=== PATIENT | female | born 1945 | race Caucasian/White ===

== ENCOUNTER 2016-12-24 18:04 | Inpatient (IN) | payer OTHER ==
[~2016-12-24] VITALS: Ht 182.9 cm; Wt 46.7 kg
[~2016-12-24 18:04] MED LIST: ALBU0.0912 IH; PRED10TA6 PO
--- NOTE | 2016-12-24 18:04 | NUR ---
Patient BIBA ACLS, transferred to bed 3. Dr. Nash, RT and RN evaluating patient at bedside.
--- NOTE | 2016-12-24 18:05 | NUR ---
PATIENT PRESENTS TO ED WITH ALBUTEROL INHALER USED SEVERAL TIMES AT HOME , NO RELIEF.POSITIVE SMOKER.COUGH CLEAR IN COLOR PER PATIENT.LUNG SOUND WHEEZ THROUGHTOUT.HX: COPD/ASTHMA. BS FIELD 96 . AAOX4;O2 VIA NC;HOB ELEVATED;NEEDS ATTENDED;SAFETY MEASURES DONE;POSITIONED FOR COMFORT.
[2016-12-24 18:13] VITALS: BP 162/83
[2016-12-24] MEDS ORDERED: ASPIRIN 81 MG TAB.CHEW PO ONE (18:15)
[2016-12-24] MEDS ORDERED: NITROGLYCERIN 2% 1 GM PKT TP ONE (18:15)
[2016-12-24] MEDS ORDERED: ALBUTEROL 0.083% 2.5 MG/3 ML NEBU INH ONE (18:20)
[2016-12-24] MEDS ORDERED: IPRATROPIUM 0.02% 0.5 MG/2.5 ML NEBU INH ONE (18:20)
[2016-12-24] MEDS ORDERED: methylPREDNISolone SS 125 MG/2 ML VIAL IVP ONE (18:20)
[2016-12-24] MEDS ORDERED: FLUT1AER4 IH (18:26)
[2016-12-24] MEDS ORDERED: BUDE180P IH (18:26)
[2016-12-24 18:43] LABS: MONOCYTES # (AUTO) 0.5 K/uL (0.8-1.0); MONOCYTES % (AUTO) 3.1 % (1.7-9.3)
[2016-12-24 18:47] LABS: BASOPHILS # (AUTO) 0.4 K/uL (0.00-0.22); BASOPHILS % (AUTO) 2.4 % (0.0-2.0); EOSINOPHILS # (AUTO) 0.2 K/uL (0-0.4); HEMATOCRIT 40.4 % (36-48); HEMOGLOBIN 13.6 g/dL (12.0-16.0); LYMPHOCYTES # (AUTO) 0.5 K/uL (2.5-16.5); LYMPHOCYTES % (AUTO) 3.1 % (20.5-51.1); MEAN CORPUSCULAR HEMOGLOBIN 33 pg (27-31); MEAN CORPUSCULAR HGB CONC 34 g/dL (33-37); MEAN CORPUSCULAR VOLUME 97 fL (80-94); NEUTROPHILS % (AUTO) 90.4 % (42.2-75.2); PLATELET COUNT (AUTO) 294 K/uL (140-450); RED BLOOD CELL COUNT(AUTO) 4.16 MIL/uL (4.20-5.40); RED CELL DISTRIBUTION WIDTH 13.4 % (11.6-13.7); WHITE BLOOD COUNT (AUTO) 16.6 K/uL (4.8-10.8)
[2016-12-24 18:54] LABS: BLOOD GAS BASE EXCESS -1.6 mmol/L (-2.0-2.0); BLOOD GAS HCO3 20.7 mmol/L; BLOOD GAS PCO2 28.6 mmHg (20-50); BLOOD GAS PH 7.478 (7.35-7.45); BLOOD GAS PO2 68.4 mmHg
[2016-12-24 18:57] LABS: ANION GAP 14.1 (8-16); CALCIUM 9.3 mg/dL (8.5-10.1); CARBON DIOXIDE 25.7 mmol/L (21-32); CHLORIDE 96 mmol/L (98-107); CREATININE 0.8 mg/dL (0.6-1.3); GLUCOSE 96 mg/dL (74-106); POTASSIUM 3.8 mmol/L (3.5-5.1); SODIUM SERUM 132 mmol/L (136-145); UREA NITROGEN, BLOOD 8 mg/dL (7-18)
[2016-12-24 19:02] LABS: ALANINE AMINOTRANSFERASE 27 U/L (12-78); ALBUMIN 4.1 g/dL (3.4-5.0); ALKALINE PHOSPHATASE 63 U/L (46-116); ASPARTATE AMINOTRANSFERASE 21 U/L (15-37); TOTAL BILIRUBIN 0.6 mg/dL (0.0-1.0)
[2016-12-24 19:08] LABS: PARTIAL THROMBOPLASTIN TIME 26.4 secs (22-35.6); PROTHROMBIN TIME 9.5 secs (10.8-13.4)
[2016-12-24 19:14] LABS: MAGNESIUM 1.6 mg/dL (1.8-2.4)
--- NOTE | 2016-12-24 19:45 | NUR ---
SPOKE TO DR MANDUJANO, PT ATTEMPTED TO URINATE BUT COULD NOT AT THE MOMENT, BUT STATED SHE HAS NO PROBLEM URINATING AT HOME. DR MANDUJANO STATED NO NEED FOR CATHETER AT THE MOMENT.
--- NOTE | 2016-12-24 19:46 | NUR ---
Pt report given to PEGGY BAEZ. Transfer of care at this time.
[2016-12-24] MEDS ORDERED: LEVOFLOXACIN 500 MG/D5W PREMIX 100 ML IV ONE (19:50)
[2016-12-24] MEDS ORDERED: ONDANSETRON 4 MG/2 ML VIAL IVP PRN (20:00)
[2016-12-24] MEDS ORDERED: MORPHINE SULFATE 2 MG/ML SYR IVP PRN (20:00)
[2016-12-24] MEDS ORDERED: NITROGLYCERIN 0.4 MG TAB SL PRN (20:00)
[2016-12-24] MEDS ORDERED: ZOLPIDEM 5 MG TAB PO PRN (20:00)
[2016-12-24] MEDS ORDERED: HYDROcodone/APAP 5/325 MG 1 TAB TAB PO PRN (20:00)
[2016-12-24] MEDS ORDERED: BUDESONIDE IH PRN (20:00)
[2016-12-24] MEDS ORDERED: MAG SULF 2000 MG/WATER PREMIX 50 ML IV ONE (20:00)
[2016-12-24] MEDS ORDERED: LORazepam 1 MG TAB PO PRN (20:00)
[2016-12-24] MEDS ORDERED: ACETAMINOPHEN 325 MG TAB PO PRN (20:00)
[2016-12-24] MEDS ORDERED: ALUMINUM HYD/MAG/SIMETHICONE 30 ML UDC PO PRN (20:00)
--- NOTE | 2016-12-24 20:12 | NUR ---
Patient will be admitted to care of DR REYES. Admited to TELE 109B. Will go to room 109B. Belongings list completed. Report to JONATHON WOODS.
[2016-12-24 20:32] VITALS: BP 150/83
--- NOTE | 2016-12-24 20:40 | NUR ---
ADMITTED A PATIENT FROM ER, TRANSPORTED VIA GURNEY, ACCOMPANIED BY ER NURSE. PT IS AAOX4, DENIES PAIN AT THIS TIME. ON NASAL CANNULA AT 3LPM, HAS NO S/S OF RESPIRATORY DISTRESS/DISCOMFORT NOTED. SKIN CHECKING DONE WITH THE CHARGE NURSE, NO SKIN ISSUES. IV SITE IS PATENT AND INTACT. REFUSED TO USE HOSPITAL GOWN AND YELLOW SOCKS, STATED " I WANT TO WEAR MY PAJAMA", PROVIDED HEALTH TEACHING, ORIENTATION TO ROOM, PLAN OF CARE DISCUSSED, VERBALIZED UNDERSTANDING. SAFETY MEASURES INITIATED, CALL LIGHT WITHIN REACH. WILL CONTINUE TO MONITOR.
[2016-12-24] MEDS ORDERED: methylPREDNISolone SS 40 MG/ML VIAL IVP SCH (21:00)
[2016-12-24] MEDS ORDERED: SALMETEROL IH SCH (21:00)
[2016-12-24] MEDS ORDERED: FLUTICASONE IH SCH (21:00)
[2016-12-24] MEDS: DEXT 5% /NACL 0.9% 1,000 ML IV SCH (21:06)
--- NOTE | 2016-12-24 22:32 | NUR ---
PT CURRENTLY RESTING, NOT IN DISTRESS. NO S/S OF RESPIRATORY DISTRESS/DISCOMFORT NOTED. CALL LIGHT WITHIN REACH.
[2016-12-25] VITALS: BP 145/79
--- NOTE | 2016-12-25 | NUR ---
V/S CHECKED, NOT IN DISTRESS. DENIES PAIN. HAS NO S/S OF RESPIRATORY DISTRESS/DISCOMFORT NOTED.
--- NOTE | 2016-12-25 02:15 | NUR ---
TRANSITIONAL CARE LIAISON AT BEDSIDE FOR BLOOD DRAW.
[2016-12-25 03:23] LABS: CREATINE KINASE MB 0.6 ng/mL (0-3.6)
[2016-12-25 04:00] VITALS: BP 145/78
--- NOTE | 2016-12-25 04:00 | NUR ---
EYES CLOSED, BREATHING EVEN AND UNLABORED. AROUSABLE BY NAME. V/S CHECKED AND STABLE. DENIES PAIN. IV FLUID INFUSING WELL. CALL LIGHT WITHIN REACH.
[2016-12-25 05:57] LABS: BILIRUBIN,URINE NEGATIVE (NEGATIVE); BLOOD, URINE TRACE-L (NEGATIVE); COLOR,URINE YELLOW (YELLOW); LEUKOCYTE ESTERASE ,URINE 1+ (NEGATIVE); NITRITE, URINE POSITIVE (NEGATIVE); PROTEIN,URINE NEGATIVE (NEGATIVE); UGLUCOSE TRACE (NEGATIVE); UROBILINOGEN,URINE 0.2 EU/dL (0.2 - 1)
--- NOTE | 2016-12-25 05:58 | NUR ---
PT AMBULATED TO REST ROOM. SECURED SAFETY. NO DISTRESS NOTED.
[2016-12-25] MEDS: DEXT 5% /NACL 0.9% 1,000 ML IV SCH ×2 (06:00→09:59)
[2016-12-25 06:56] LABS: HEMATOCRIT 36.7 % (36-48); HEMOGLOBIN 12.1 g/dL (12.0-16.0); MEAN CORPUSCULAR HEMOGLOBIN 32 pg (27-31); MEAN CORPUSCULAR HGB CONC 33 g/dL (33-37); MEAN CORPUSCULAR VOLUME 99 fL (80-94); PLATELET COUNT (AUTO) 282 K/uL (140-450); RED BLOOD CELL COUNT(AUTO) 3.71 MIL/uL (4.20-5.40); RED CELL DISTRIBUTION WIDTH 13.2 % (11.6-13.7); WHITE BLOOD COUNT (AUTO) 18.4 K/uL (4.8-10.8)
[2016-12-25] MEDS ORDERED: ALBUTEROL 0.083% 2.5 MG/3 ML NEBU INH PRN (07:08)
[2016-12-25 07:18] LABS: ANION GAP 11.3 (8-16); CALCIUM 8.6 mg/dL (8.5-10.1); CARBON DIOXIDE 25.8 mmol/L (21-32); CHLORIDE 101 mmol/L (98-107); CREATININE 0.8 mg/dL (0.6-1.3); GLUCOSE 182 mg/dL (74-106); POTASSIUM 4.1 mmol/L (3.5-5.1); SODIUM SERUM 134 mmol/L (136-145); UREA NITROGEN, BLOOD 9 mg/dL (7-18)
--- NOTE | 2016-12-25 07:24 | NUR ---
REPORT GIVEN TO DAY SHIFT NURSE FOR CONTINUITY OF CARE. PT IN STABLE CONDITION.
[2016-12-25 07:25] LABS: MAGNESIUM 2.3 mg/dL (1.8-2.4); PHOSPHORUS 3.6 mg/dL (2.5-4.9)
--- NOTE | 2016-12-25 07:26 | NUR ---
RECEIVED REPORT FROM NIGHT RN. PT RESTING IN BED. AAOX4. NO S/S OF ACUTE DISTRESS. PT DENIES PAIN. IV SITE PATENT AND INTACT. ON O2 3L NC. PT EDUCATION PROVIDED ON SCD'S. PT REFUSED. CALL LIGHT WITHIN REACH. SAFETY MEASURES ENSURED. WILL CONTINUE TO MONITOR.
[2016-12-25] MEDS: BUDESONIDE 0.5 MG/2 ML NEBU INH SCH ×2 (07:30→19:30)
[2016-12-25 08:00] VITALS: BP 128/68
[2016-12-25 08:33] LABS: BAND % (MANUAL) 5 % (0-8); LYMPHOCYTES % (MANUAL) 5 % (20-46); MONOCYTES % (MANUAL) 17 % (5-12); NEUTROPHILS % (MANUAL) 73 (43-65)
[2016-12-25 08:38] LABS: APPEARANCE,URINE HAZY (CLEAR)
[2016-12-25 08:41] LABS: BACTERIA,URINE 1+ /HPF (None Seen); RBC,URINE NONE SEEN /HPF (0-5)
--- NOTE | 2016-12-25 09:12 | NUR ---
PATIENT HAS BEEN SCREENED AND CATEGORIZED HIGH NUTRITION RISK. PATIENT WILL BE SEEN WITHIN 1-2 DAYS OF ADMISSION. 12/25/16-12/26/[address]
[2016-12-25] MEDS: methylPREDNISolone SS 40 MG/ML VIAL IVP SCH ×2 (09:31→20:48)
[2016-12-25] MEDS: DOCUSATE SODIUM 100 MG GELCAP PO SCH (09:31)
--- NOTE | 2016-12-25 09:31 | NUR ---
PT TOLERATED AM MEDS WELL. PT DENIES PAIN. NO S/S OF ACUTE DISTRESS. PT DENIES PAIN. CALL LIGHT WITHIN REACH. SAFETY MEASURES ENSURED. WILL CONTINUE TO MONITOR.
[2016-12-25 11:40] LABS: CREATINE KINASE MB 0.6 ng/mL (0-3.6)
[2016-12-25 11:56] VITALS: BP 144/74
--- NOTE | 2016-12-25 11:56 | NUR ---
PT SLEEPING IN BED. NO S/S OF ACUTE DISTRESS. CALL LIGHT WITHIN REACH. SAFETY MEASURES ENSURED. WILL CONTINUE TO MONITOR.
--- NOTE | 2016-12-25 12:03 | NUR ---
12/25/16 RD INITIAL ASSESSMENT COMPLETED PLEASE REFER TO NUTRITION ASSESSMENT UNDER CARE ACTIVITY FOR ESTIMATED NUTRITIONAL NEEDS. RD RECOMMENDATIONS: 1. CONTINUE ON CARDIAC DIET TOLERATED. 2. ENCOURAGE INCREASED PO INTAKES. --RD WILL ADD HEALTH SHAKE TID FOR ADDITIONAL 900 KCAL AND 27 GM OF PROTEIN PER DAY. 3. PT DOES NOT APPEAR TO BE 72 IN TALL, CONSIDER REEVALUATING PT HEIGHT. 4. RD WILL F/U 3-5 DAYS; MODERATE RISK. ANGIE COOMBS, RD
[2016-12-25] MEDS: ALBUTEROL 0.083% 2.5 MG/3 ML NEBU INH SCH ×2 (13:08→19:30)
--- NOTE | 2016-12-25 14:22 | NUR ---
PT RESTING IN BED. NO S/S OF ACUTE DISTRESS. PT DENIES PAIN. CALL LIGHT WITHIN REACH. SAFETY MEASURES ENSURED. WILL CONTINUE TO MONITOR.
[2016-12-25 16:00] VITALS: BP 153/73
--- NOTE | 2016-12-25 17:22 | NUR ---
PT RESTING IN BED. NO S/S OF ACUTE DISTRESS. PT DENIES PAIN. CALL LIGHT WITHIN REACH. SAFETY MEASURES ENSURED. WILL CONTINUE TO MONITOR.
--- NOTE | 2016-12-25 19:13 | NUR ---
ENDORSED PLAN OF CARE TO NIGHT RN. PT REMAINS IN STABLE CONDITION..
--- NOTE | 2016-12-25 19:30 | NUR ---
RECEIVED REPORT FROM DAY RN AT BEDSIDE, PATIENT IS AAOX4 CURRENTLY ON ROOM AIR, NO SOB OR SIGN OF DISTRESS AT THIS TIME. PATIENT SKIN INTACT, IV PATENT AND INTACT, DENIES PAIN. DISCUSSED PLAN OF CARE WITH PATIENT, PATIENT VERBALIZED UNDERSTANDING, CALL LIGHT WITHIN REACH. WILL CONTINUE TO MONITOR.
[2016-12-25 20:00] VITALS: BP 160/83
[2016-12-25] MEDS: LEVOFLOXACIN 250 MG/D5 PREMIX 50 ML IV SCH (20:47)
--- NOTE | 2016-12-25 21:04 | NUR ---
PM MEDS ADMINISTERED, PATIENT TOLERATED WELL, WILL CONTINUE TO MONITOR
--- NOTE | 2016-12-25 22:30 | NUR ---
PATIENT SLEEPING, NO SOB OR SIGN OF DISTRESS AT THIS TIME, CALL LIGHT WITHIN REACH WILL CONTINUE TO MONITOR.
[2016-12-26] VITALS: BP 149/71
--- NOTE | 2016-12-26 | NUR ---
VITAL SIGNS STABLE, NO SOB OR SIGN OF DISTRESS AT THIS TIME, CALL LIGHT WITHIN REACH. WILL CONTINUE TO MONITOR.
[2016-12-26] MEDS: ALBUTEROL 0.083% 2.5 MG/3 ML NEBU INH SCH ×4 (01:23→19:00)
--- NOTE | 2016-12-26 02:15 | NUR ---
PATIENT SLEEPING, NO SOB OR SIGN OF DISTRESS AT THIS TIME, CALL LIGHT WITHIN REACH. WILL CONTINUE TO MONITOR.
[2016-12-26] MEDS: DEXT 5% /NACL 0.9% 1,000 ML IV SCH ×3 (02:20→20:22)
[2016-12-26 04:00] VITALS: BP 143/69
--- NOTE | 2016-12-26 04:30 | NUR ---
VITAL SIGNS STABLE, NO SOB OR SIGN OF DISTRESS AT THIS TIME, CALL LIGHT WITHIN REACH. WILL CONTINUE TO MONITOR
[2016-12-26 05:38] LABS: HEMATOCRIT 31.6 % (36-48); HEMOGLOBIN 10.3 g/dL (12.0-16.0); MEAN CORPUSCULAR HEMOGLOBIN 32 pg (27-31); MEAN CORPUSCULAR HGB CONC 33 g/dL (33-37); MEAN CORPUSCULAR VOLUME 99 fL (80-94); PLATELET COUNT (AUTO) 235 K/uL (140-450); RED BLOOD CELL COUNT(AUTO) 3.19 MIL/uL (4.20-5.40); RED CELL DISTRIBUTION WIDTH 13.5 % (11.6-13.7); WHITE BLOOD COUNT (AUTO) 12.7 K/uL (4.8-10.8)
[2016-12-26 06:13] LABS: ANION GAP 12.2 (8-16); CALCIUM 8.1 mg/dL (8.5-10.1); CARBON DIOXIDE 24.8 mmol/L (21-32); CHLORIDE 106 mmol/L (98-107); CREATININE 0.7 mg/dL (0.6-1.3); GLUCOSE 161 mg/dL (74-106); SODIUM SERUM 139 mmol/L (136-145); UREA NITROGEN, BLOOD 9 mg/dL (7-18)
[2016-12-26] MEDS: BUDESONIDE 0.5 MG/2 ML NEBU INH SCH ×2 (06:59→20:08)
[2016-12-26 07:01] LABS: BAND % (MANUAL) 5 % (0-8); LYMPHOCYTES % (MANUAL) 4 % (20-46); MONOCYTES % (MANUAL) 4 % (5-12); NEUTROPHILS % (MANUAL) 87 (43-65); PLATELET ESTIMATE ADEQUATE
--- NOTE | 2016-12-26 07:37 | NUR ---
ENDORSED PATIENT TO DAY RN AT BEDSIDE, PATIENT IN STABLE CONDITION
--- NOTE | 2016-12-26 07:40 | NUR ---
RECEIVED REPORT FROM ELISEO RN. PT IN BATHROOM. UPON EXITING BATHROOM PT'S IV IS OUT OF ARM. TIP INTACT. PRESSURE HELD ON SITE. AAOX4. NO S/S OF ACUTE DISTRESS. PT DENIES PAIN. TELE BOX IN PLACE. CALL LIGHT WITHIN REACH. SAFETY MEASURES ENSURED. WILL CONTINUE TO MONITOR.
[2016-12-26 07:43] VITALS: BP 142/64
[2016-12-26] MEDS: DOCUSATE SODIUM 100 MG GELCAP PO SCH (08:49)
[2016-12-26] MEDS: methylPREDNISolone SS 40 MG/ML VIAL IVP SCH ×2 (08:49→20:21)
--- NOTE | 2016-12-26 08:49 | NUR ---
PT TOLERATED AM MEDS WELL. IV STARTED ON RIGHT WRIST 22G. NO S/S OF ACUTE DISTRESS. PT DENIES PAIN. CALL LIGHT WITHIN REACH. WILL CONTINUE TO MONITOR.
--- NOTE | 2016-12-26 11:27 | NUR ---
PT RESTING IN BED. NO S/S OF ACUTE DISTRESS. PT DENIES PAIN. CALL LIGHT WITHIN REACH. SAFETY MEASURES ENSURED. WILL CONTINUE TO MONITOR.
[2016-12-26 12:00] VITALS: BP 152/71
--- NOTE | 2016-12-26 14:55 | NUR ---
PT RESTING IN BED. NO S/S OF ACUTE DISTRESS. PT DENIES PAIN. CALL LIGHT WITHIN REACH. SAFETY MEASURES ENSURED. WILL CONTINUE TO MONITOR.
[2016-12-26] MEDS ORDERED: MAG SULF 2000 MG/WATER PREMIX 50 ML IV SCH (15:40)
[2016-12-26 16:00] VITALS: BP 147/63
[2016-12-26 16:26] LABS: FREE T4 (FREE THYROXINE) 1.09 ng/dL (0.76-1.46); THYROID STIMULATING HORMONE 1.29 uIU/mL (0.34-3.76)
--- NOTE | 2016-12-26 16:41 | NUR ---
PT RESTING IN BED. NO S/S OF ACUTE DISTRESS. PT DENIES PAIN. CALL LIGHT WITHIN REACH. SAFETY MEASURES ENSURED. WILL CONTINUE TO MONITOR
--- NOTE | 2016-12-26 19:18 | NUR ---
ENDORSED PLAN OF CARE TO NIGHT RN. PT REMAINS IN STABLE CONDITION.
--- NOTE | 2016-12-26 19:30 | NUR ---
RECEIVED REPORT FROM DAY RN AT BEDSIDE, PATIENT IS AAO X4 RESTING IN BED, ON ROOM AIR AT THIS TIME, NO SOB OR SIGN OF DISTRESS AT THIS TIME. IV IS PATENT AND INTACT WITH IVF INFUSING WELL. SKIN INTACT, DISCUSSED PLAN OF CARE WITH PATIENT, PATIENT VERBALIZED UNDERSTANDING, CALL LIGHT WITHIN REACH. WILL CONTINUE TO MONITOR.
[2016-12-26 20:00] VITALS: BP 161/88
[2016-12-26] MEDS: LEVOFLOXACIN 250 MG/D5 PREMIX 50 ML IV SCH (20:21)
--- NOTE | 2016-12-26 20:30 | NUR ---
PM MEDS ADMINISTERED, PATIENT TOLERATED WELL, CALL LIGHT WITHIN REACH. WILL CONTINUE TO MONITOR.
--- NOTE | 2016-12-26 22:30 | NUR ---
PATIENT SLEEPING, NO SOB OR SIGN OF DISTRESS AT THIS TIME, CALL LIGHT WITHIN REACH. WILL CONTINUE TO MONITOR.
[2016-12-27] VITALS: BP 160/71
--- NOTE | 2016-12-27 00:05 | NUR ---
VITAL SIGNS STABLE, NO SOB OR SIGN OF DISTRESS, CALL LIGHT WITHIN REACH. WILL CONTINUE TO MONITOR.
[2016-12-27] MEDS: ALBUTEROL 0.083% 2.5 MG/3 ML NEBU INH SCH ×4 (01:38→19:25)
--- NOTE | 2016-12-27 02:30 | NUR ---
PATIENT SLEEPING, NO SOB OR SIGN OF DISTRESS, CALL LIGHT WITHIN REACH. WILL CONTINUE TO MONITOR.
[2016-12-27 04:00] VITALS: BP 154/76
--- NOTE | 2016-12-27 04:00 | NUR ---
VITAL SIGNS STABLE, NO SOB OR SIGN OF DISTRESS, CALL LIGHT WITHIN REACH. WILL CONTINUE TO MONITOR.
[2016-12-27 06:39] LABS: BASOPHILS # (AUTO) 0.1 K/uL (0.00-0.22); BASOPHILS % (AUTO) 0.7 % (0.0-2.0); EOSINOPHILS # (AUTO) 0.1 K/uL (0-0.4); EOSINOPHILS % (AUTO) 1.5 % (0.0-4.0); HEMATOCRIT 31.3 % (36-48); HEMOGLOBIN 10.2 g/dL (12.0-16.0); LYMPHOCYTES # (AUTO) 0.7 K/uL (2.5-16.5); LYMPHOCYTES % (AUTO) 7.2 % (20.5-51.1); MEAN CORPUSCULAR HEMOGLOBIN 32 pg (27-31); MEAN CORPUSCULAR HGB CONC 33 g/dL (33-37); MEAN CORPUSCULAR VOLUME 100 fL (80-94); MONOCYTES # (AUTO) 0.7 K/uL (0.8-1.0); MONOCYTES % (AUTO) 7.4 % (1.7-9.3); NEUTROPHILS # (AUTO) 8.3 K/uL (1.8-7.7); NEUTROPHILS % (AUTO) 83.2 % (42.2-75.2); PLATELET COUNT (AUTO) 251 K/uL (140-450); RED BLOOD CELL COUNT(AUTO) 3.13 MIL/uL (4.20-5.40); RED CELL DISTRIBUTION WIDTH 13.4 % (11.6-13.7)
[2016-12-27] MEDS: BUDESONIDE 0.5 MG/2 ML NEBU INH SCH ×2 (06:49→19:25)
--- NOTE | 2016-12-27 07:30 | NUR ---
ENDORSED PATIENT TO DAY RN AT BEDSIDE, PATIENT IN STABLE CONDITION.
--- NOTE | 2016-12-27 07:32 | NUR ---
RECEIVED REPORT FROM NIGHT RN. PT RESTING IN BED. AAOX4. NO S/S OF ACUTE DISTRESS. PT DENIES PAIN. IV SITE PATENT AND INTACT. TELE BOX IN PLACE. CALL LIGHT WITHIN REACH. SAFETY MEASURES ENSURED. WILL CONTINUE TO MONITOR.
[2016-12-27 07:59] LABS: ANION GAP 11.9 (8-16); CALCIUM 8.3 mg/dL (8.5-10.1); CARBON DIOXIDE 24.7 mmol/L (21-32); CHLORIDE 108 mmol/L (98-107); CREATININE 0.6 mg/dL (0.6-1.3); GLUCOSE 129 mg/dL (74-106); POTASSIUM 3.6 mmol/L (3.5-5.1); SODIUM SERUM 141 mmol/L (136-145); UREA NITROGEN, BLOOD 10 mg/dL (7-18)
[2016-12-27 08:00] VITALS: BP 163/80
[2016-12-27] MEDS: DEXT 5% /NACL 0.9% 1,000 ML IV SCH ×3 (08:00→21:42)
[2016-12-27 08:48] LABS: WHITE BLOOD COUNT (AUTO) 9.9 K/uL (4.8-10.8)
[2016-12-27] MEDS: NICOTINE TRANSD SYS 21 MG/24 HR PATCH TD SCH (09:00)
[2016-12-27] MEDS: DOCUSATE SODIUM 100 MG GELCAP PO SCH (09:16)
[2016-12-27] MEDS: methylPREDNISolone SS 40 MG/ML VIAL IVP SCH ×2 (09:17→20:39)
[2016-12-27] MEDS: MAGNESIUM OXIDE 400 MG TAB PO SCH (09:17)
[2016-12-27] MEDS: DILTIAZEM 90 MG CAPER PO SCH (09:17)
--- NOTE | 2016-12-27 10:05 | NUR ---
AM MEDS GIVEN WITH EDUCATION, PT TOLERATED WELL. PT REFUSED NICOTINE PATCH. NO S/S OF ACUTE DISTRESS. PT DENIES PAIN. CALL LIGHT WITHIN REACH. SAFETY MEASURES ENSURED. WILL CONTINUE TO MONITOR.
--- NOTE | 2016-12-27 11:38 | NUR ---
PT RESTING IN BED. NO S/S OF ACUTE DISTRESS. PT DENIES PAIN. CALL LIGHT WITHIN REACH. SAFETY MEASURES ENSURED. WILL CONTINUE TO MONITOR.
[2016-12-27 12:00] VITALS: BP 161/78
[2016-12-27] MEDS ORDERED: MAG SULF 2000 MG/WATER PREMIX 50 ML IV SCH (13:00)
--- NOTE | 2016-12-27 14:15 | NUR ---
PT RESTING IN BED. NO S/S OF ACUTE DISTRESS. PT DENIES PAIN. CALL LIGHT WITHIN REACH. SAFETY MEASURES ENSURED. WILL CONTINUE TO MONITOR.
[2016-12-27 16:00] VITALS: BP 165/75
--- NOTE | 2016-12-27 17:08 | NUR ---
PT RESTING IN BED. NO S/S OF ACUTE DISTRESS. PT DENIES PAIN. CALL LIGHT WITHIN REACH. SAFETY MEASURES ENSURED. WILL CONTINUE TO MONITOR.
--- NOTE | 2016-12-27 19:31 | NUR ---
ENDORSED PLAN OF CARE. PT REMAINS IN STABLE CONDITION.
--- NOTE | 2016-12-27 19:32 | NUR ---
RECEIVED PT IN STABLE CONDITION FROPM AM NURSE. AWAKE,ALERT AND ORIENTED X4. MED SURG PT. WITH NO C/O OF ANY DISCOMFORT NOR PAIN NOTED. GETTING BREATHING TREATMENT AT THIS TIME. HAS IVF INFUSING WELL ON THE RT WRIST #22. CLEAR AND PATENT. PLAN OF CARE DISCUSSED AND VERBALIZED UNDERSTANDING. CALL LIGHT PLACED WITHIN EASY REACH. WILL CONTINUE TO MONITOR.
[2016-12-27] MEDS: LEVOFLOXACIN 250 MG/D5 PREMIX 50 ML IV SCH (20:38)
--- NOTE | 2016-12-27 22:00 | NUR ---
ASLEEP. NO S/S OF ANY DISTRESS NOTED. WILL CONTINUE TO MONITOR.
[2016-12-28 00:30] VITALS: BP 161/78
--- NOTE | 2016-12-28 01:00 | NUR ---
ASLEEP. NO RESPIRATORY DISTRESS NOTED.
[2016-12-28] MEDS: ALBUTEROL 0.083% 2.5 MG/3 ML NEBU INH SCH ×3 (02:06→13:50)
[2016-12-28] MEDS: DEXT 5% /NACL 0.9% 1,000 ML IV SCH ×2 (04:00→15:04)
--- NOTE | 2016-12-28 04:00 | NUR ---
PT IN STABLE CONDITION. NO C/O OF ANY SOB NOTED.
[2016-12-28 06:13] LABS: BASOPHILS % (AUTO) 0.5 % (0.0-2.0); EOSINOPHILS # (AUTO) 0.1 K/uL (0-0.4); EOSINOPHILS % (AUTO) 1.1 % (0.0-4.0); HEMOGLOBIN 10.8 g/dL (12.0-16.0); LYMPHOCYTES # (AUTO) 0.4 K/uL (2.5-16.5); LYMPHOCYTES % (AUTO) 5.4 % (20.5-51.1); MEAN CORPUSCULAR HEMOGLOBIN 33 pg (27-31); MEAN CORPUSCULAR HGB CONC 33 g/dL (33-37); MEAN CORPUSCULAR VOLUME 100 fL (80-94); MONOCYTES # (AUTO) 0.2 K/uL (0.8-1.0); MONOCYTES % (AUTO) 2.8 % (1.7-9.3); NEUTROPHILS # (AUTO) 6.8 K/uL (1.8-7.7); NEUTROPHILS % (AUTO) 90.2 % (42.2-75.2); PLATELET COUNT (AUTO) 272 K/uL (140-450); RED BLOOD CELL COUNT(AUTO) 3.31 MIL/uL (4.20-5.40); RED CELL DISTRIBUTION WIDTH 13.4 % (11.6-13.7); WHITE BLOOD COUNT (AUTO) 7.4 K/uL (4.8-10.8)
[2016-12-28 06:23] LABS: ANION GAP 6.9 (8-16); CALCIUM 8.5 mg/dL (8.5-10.1); CARBON DIOXIDE 29.8 mmol/L (21-32); CHLORIDE 104 mmol/L (98-107); CREATININE 0.7 mg/dL (0.6-1.3); GLUCOSE 182 mg/dL (74-106); POTASSIUM 3.7 mmol/L (3.5-5.1); SODIUM SERUM 137 mmol/L (136-145); UREA NITROGEN, BLOOD 8 mg/dL (7-18)
--- NOTE | 2016-12-28 06:30 | NUR ---
PT RESTING IN BED. NO C/O OF ANY DISTRESS NOTED THIS AM.
[2016-12-28 06:41] LABS: MAGNESIUM 1.8 mg/dL (1.8-2.4); PHOSPHORUS 2.7 mg/dL (2.5-4.9)
[2016-12-28] MEDS: BUDESONIDE 0.5 MG/2 ML NEBU INH SCH (07:15)
--- NOTE | 2016-12-28 07:20 | NUR ---
ENDORSED PT IN STABLE CONDITION TO AM NURSE.
--- NOTE | 2016-12-28 07:21 | NUR ---
PT AWAKE AND ALERT AND ORIENTED X4, NO SIGNS OF ACUTE DISTRESS, BREATHING EVEN AND UNLABORED BILATERALLY, BOWEL SOUNDS ACTIVE IN ALL 4 QUADRANTS NO ABDOMINAL DISTENTION, AMBULATORY WITH BRP, BOWEL AND BLADDER CONTINENCE, SKIN INTACT, IV LINE PATENT WITH NO SIGNS OF REDNESS, BED IN LOW POSITION WITH BILATERAL HALF SIDE RAILS UP, CALL LIGHT WITHIN REACH.
[2016-12-28 08:00] VITALS: BP 161/91
[2016-12-28] MEDS: NICOTINE TRANSD SYS 21 MG/24 HR PATCH TD SCH (09:00)
[2016-12-28] MEDS: methylPREDNISolone SS 40 MG/ML VIAL IVP SCH (09:09)
[2016-12-28] MEDS: DILTIAZEM 90 MG CAPER PO SCH (09:11)
[2016-12-28] MEDS: MAGNESIUM OXIDE 400 MG TAB PO SCH (09:11)
[2016-12-28] MEDS: DOCUSATE SODIUM 100 MG GELCAP PO SCH (09:11)
[2016-12-28 15:56] VITALS: BP 149/81
--- NOTE | 2016-12-28 18:52 | NUR ---
PT AWAKE AND ALERT, NO SIGNS OF ACUTE DISTRESS, BREATHING EVEN AND UNLABORED BILATERALLY, WILL ENDORSE TO MANAGER BAR NURSE FOR CONTINUITY OF CARE.
[2016-12-28] MEDS ORDERED: LEVO750T2 PO (18:57)
[2016-12-28] MEDS ORDERED: CARER90 PO (18:57)
[2016-12-28] MEDS ORDERED: MAG400 PO (18:57)
[2016-12-28] MEDS ORDERED: BUDE180P IH (18:57)
[2016-12-28] MEDS ORDERED: [UNRECOGNIZED DRUG - CODE] TD (18:57)
[2016-12-28] MEDS ORDERED: FLUT1AER4 IH (18:57)
[2016-12-28] MEDS ORDERED: ALBU0.0912 IH (18:57)
[2016-12-28] MEDS ORDERED: NITR0.4T1 SL (18:57)
--- NOTE | 2016-12-28 19:05 | NUR ---
PT AWAKE AND ALERT, NO SIGNS OF ACUTE DISTRESS. ENDORSED TO UNDERGROUND UTILITY LOCATOR NURSE FOR CONTINUITY OF CARE.
--- NOTE | 2016-12-28 19:30 | NUR ---
RECEIVED REPORT FROM DAY RN AT BEDSIDE, PATIENT ON ROOM AIR, AAOX4 GATHERING BELONGINGS PATIENT IS TO BE DISCHARGED, PAPERWORK IS TO BE SIGNED, PATIENT IV STILL INTACT, PTS RIDE TO ONCOLOGY PHYSICIAN ASSISTANT SOON PER PATIENT, SKIN INTACT, SAFETY MEASURES CHECKED. CALL LIGHT WITHIN REACH. WILL CONTINUE TO MONITOR.
--- NOTE | 2016-12-28 19:35 | NUR ---
PATIENT WAS GIVEN DISCHARGE INSTRUCTIONS PATIENT VERBALIZES UNDERSTANDING AND PRESCRIPTIONS WERE GIVEN AND PATIENT PATIENT INFORMED TO MAKE A FOLLOW UP APPT PATIENT VERBALIZES UNDERSTANDING. AND PATIENT HAS ALL HER BELONGINGS WITH HER.IV LINE WAS DISCONTINUED AND ID BANDS REMOVED AND DISCARDED APPROPRIATELY. PATIENT READY FOR PROFESSIONAL ADVISOR ESCALERA INFORMED.PATIENT IS WAITING FOR HER RIDE.
--- NOTE | 2016-12-28 20:40 | NUR ---
PATIENT RIDE HERE TO INSTALLATION SPECIALIST PATIENT, PATIENT STABLE CONDITION, PAPERWORK SIGNED, IV REMOVED, WRISTBANDS REMOVED, PATIENT'S BELONGINGS IN PTS POSSESSION, PATIENT WHEELED OUT TO FRONT LOBBY BY LARD TUB WASHER, PATIENT LEFT IN PRIVATE VEHICLE IN STABLE CONDITION.
== END 2016-12-28 20:32 | disposition home or self-care (01) | DRG 871 ==
LOC: MED 18:04 → MTU 20:07
PROVIDERS: ADMIT Preventive Medicine Preventive Medicine/Occupational Environmental Medicine; ATTEND Preventive Medicine Preventive Medicine/Occupational Environmental Medicine
DX: A41.9 Sepsis, unspecified organism (principal); G93.41 Metabolic encephalopathy; J18.9 Pneumonia, unspecified organism; J96.21 Acute and chronic respiratory failure with hypoxia; J44.1 Chronic obstructive pulmonary disease with (acute) exacerbation; E87.0 Hyperosmolality and hypernatremia; J44.0 Chronic obstructive pulmonary disease with (acute) lower respiratory infection; I25.10 Atherosclerotic heart disease of native coronary artery without angina pectoris; F17.200 Nicotine dependence, unspecified, uncomplicated; F10.10 Alcohol abuse, uncomplicated; D64.9 Anemia, unspecified; E83.42 Hypomagnesemia; E83.52 Hypercalcemia; F17.210 Nicotine dependence, cigarettes, uncomplicated; I48.0 Paroxysmal atrial fibrillation; R73.9 Hyperglycemia, unspecified; Z71.6 Tobacco abuse counseling; Z79.899 Other long term (current) drug therapy
CPT/HCPCS: 36415; 36600; 71010; 80048; 80053; 81001; 82550; 82553; 82803; 83605; 83735; 83874; 83880; 84100; 84439; 84443; 84484; 85025; 85610; 85651; 85730; 86140; 87040; 87081; 87086; 93005; 94640; 96365; 96375; 99285; J1644; J1956; J2920; J2930; J3475; J7030; J7042; J7613; J7626; J7644; Q0092

== ENCOUNTER 2018-01-06 12:24 | Inpatient (IN) | payer OTHER ==
[~2018-01-06] VITALS: Ht 177.8 cm; Wt 45.8 kg
[~2018-01-06 12:24] MED LIST changes: +BUDE180P IH; +CARER90 PO; +FLUT1AER4 IH; +LEVO750T2 PO; +MAG400 PO; +NICO-532 TD; +NITR0.4T1 SL; -PRED10TA6 PO
[2018-01-06 12:25] VITALS: BP 171/113
--- NOTE | 2018-01-06 12:30 | NUR ---
ERMD MADE AWARE OF PATIENT SOB/COUGH AND DIMINISHED BS WHILE IN TRIAGE. NO BED AT THAT TIME.
--- NOTE | 2018-01-06 12:40 | NUR ---
ASSESSED BY ERMD IN TRIAGE.WILL ORDER RESP.TX
[2018-01-06] MEDS ORDERED: IPRATROPIUM 0.02% 0.5 MG/2.5 ML NEBU INH ONE (12:45)
[2018-01-06] MEDS ORDERED: methylPREDNISolone SS 125 MG/2 ML VIAL IVP ONE (12:45)
[2018-01-06] MEDS ORDERED: ALBUTEROL 0.083% 2.5 MG/3 ML NEBU INH ONE (12:45)
--- NOTE | 2018-01-06 12:45 | NUR ---
PT TAKEN TO BED 3 IN WHEELCHAIR
--- NOTE | 2018-01-06 12:45 | NUR ---
PATIENT PRESENTS TO ED WITH COMPLAINTS OF SHORTNESS OF BREATH DUE TO REACTION OF CONTRAST USED 3 DAYS AGO REPORTED PER PATIENTS SON. DENIES N/V/D; SKIN IS PINK/WARM/DRY; AAOX4; SOME WHEEZING PRESENT IN LUNG SOUNDS; CAP REFIL <3 SEC HR EVEN AND REGULAR; PT DENIES ANY FEVER; PATIENT STATES PAIN OF 5/10 AT THIS TIME; VSS; PATIENT POSITIONED FOR COMFORT; HOB ELEVATED; BEDRAILS UP X1; BED DOWN. ER MD MADE AWARE OF PT STATUS.
--- NOTE | 2018-01-06 12:48 | NUR ---
ADMITTING DX: SOB HX: COPD/ASTHMA LOC AWAKE AND ALERT REPONSIVE TO STRICKLER ATTENDANT VERBAL COMMANDS HFW POSITION EDUCATION PROVIDE TO PATIENT WITH ACKNOWLEDGEMENT ON HHN THERAPY AND RESPIRATORY DRUGS HHN THERAPY GIVEN ORDERED ENCOURAGED PATIENT FOR INTERMITTENT DEEP BREATHING DURING THERAPY TOLERATED WELL WITHOUT INCIDENT
--- NOTE | 2018-01-06 12:58 | NUR ---
RT AT BEDSIDE
--- NOTE | 2018-01-06 13:09 | NUR ---
XRAY AT BEDSIDE
[2018-01-06 14:01] LABS: BASOPHILS % (AUTO) 0.7 % (0.0-2.0); EOSINOPHILS # (AUTO) 0.4 K/uL (0-0.4); EOSINOPHILS % (AUTO) 5.8 % (0.0-4.0); HEMATOCRIT 40.9 % (36-48); HEMOGLOBIN 13.5 g/dL (12.0-16.0); LYMPHOCYTES # (AUTO) 1.4 K/uL (2.5-16.5); LYMPHOCYTES % (AUTO) 23.3 % (20.5-51.1); MEAN CORPUSCULAR HEMOGLOBIN 33 pg (27-31); MEAN CORPUSCULAR HGB CONC 33 g/dL (33-37); MEAN CORPUSCULAR VOLUME 99.6 fL (80-94); MONOCYTES # (AUTO) 0.7 K/uL (0.8-1.0); NEUTROPHILS # (AUTO) 3.7 K/uL (1.8-7.7); NEUTROPHILS % (AUTO) 59.2 % (42.2-75.2); PLATELET COUNT (AUTO) 294 K/uL (140-450); RED CELL DISTRIBUTION WIDTH 13.2 % (11.6-13.7); WHITE BLOOD COUNT (AUTO) 6.2 K/uL (4.8-10.8)
[2018-01-06 14:16] LABS: ANION GAP 11.2 (8-16); CARBON DIOXIDE 28.7 mmol/L (21-32); CHLORIDE 99 mmol/L (98-107); CREATININE 0.9 mg/dL (0.6-1.3); GLUCOSE 93 mg/dL (74-106); POTASSIUM 4.9 mmol/L (3.5-5.1); SODIUM SERUM 134 mmol/L (136-145); UREA NITROGEN, BLOOD 10 mg/dL (7-18)
[2018-01-06 14:19] LABS: PROTHROMBIN TIME 10.4 secs (10.8-13.4)
[2018-01-06 14:23] LABS: ALBUMIN 4.3 g/dL (3.4-5.0); ASPARTATE AMINOTRANSFERASE 19 U/L (15-37); TOTAL BILIRUBIN 0.5 mg/dL (0.0-1.0)
[2018-01-06] MEDS ORDERED: cloNIDine 0.1 MG TAB PO ONE (14:35)
[2018-01-06] MEDS: NACL 0.9% 1,000 ML IV SCH (14:57)
[2018-01-06] MEDS ORDERED: ACETAMINOPHEN 325 MG TAB PO PRN (15:00)
[2018-01-06] MEDS ORDERED: HYDROcodone/APAP 7.5/325 MG 1 TAB PO PRN (15:00)
[2018-01-06] MEDS ORDERED: MORPHINE SULFATE 2 MG/ML SYR IVP PRN (15:00)
[2018-01-06] MEDS ORDERED: DOCUSATE SODIUM 100 MG GELCAP PO PRN (15:00)
[2018-01-06] MEDS ORDERED: ALBUTEROL SULFATE/IPRATROPIU 3 ML SOL IH PRN (15:05)
[2018-01-06] MEDS ORDERED: ALBUTEROL HFA MDI 90 MCG/ACTUATION 8 GM INH PRN (15:05)
[2018-01-06 15:38] VITALS: BP 157/84
--- NOTE | 2018-01-06 15:38 | NUR ---
Patient will be admitted to care of DR. PATTERSON. Admited to TELE. Will go to [id number]. Belongings list completed. Report to BRENDEN.
--- NOTE | 2018-01-06 15:38 | NUR ---
RECEIVED BEDSIDE REPORT FROM PROJ ENGINEER NURSE. PATIENT IS AWAKE, ALERT AND ORIENTEDX4. NO SIGNS OF DISTRESS, PLACED PATIENT ON 2L NC, 02SAT 89% RA, UP TO 92% ON 2L NC. LUNGS ARE CLEAR. IV ON LAC 20G SALINE LOCK. IV IS CLEAN, DRY AND INTACT. VITALS ARE STABLE. TELE MONITOR IN PLACE. ALL PAPERWORK AND ADMISSION PAPERWORK IS DONE. EDUCATED THE PATIENT ON THE IMPORTANCE TO STOP SMOKING. PATIENT VERBALIZED UNDERSTANDING. SKIN HAS BUE BRUISES. L BREAST LUMPS ARE PRESENT. MRSA SWAB IS DONE. BED IN LOW POSITION. CALL LIGHT WITHIN REACH. WILL CONTINUE TO MONITOR THE PATIENT. PATIENT HAS MED IN PHARMACY
[2018-01-06 15:54] LABS: FREE T4 (FREE THYROXINE) 1.18 ng/dL (0.76-1.46); MAGNESIUM 1.9 mg/dL (1.8-2.4); PHOSPHORUS 4.5 mg/dL (2.5-4.9); THYROID STIMULATING HORMONE 2.26 uIU/mL (0.34-3.74)
--- NOTE | 2018-01-06 17:00 | NUR ---
FAMILY IS AT BEDSIDE. NO COMPLAINTS AT THIS TIME. WILL CONTINUE TO MONITOR THE PATIENT.
[2018-01-06] MEDS ORDERED: NICOTINE TRANSD SYS 21 MG/24 HR PATCH TD PRN (17:15)
[2018-01-06] MEDS ORDERED: hydrALAZINE 20 MG/ML VIAL IVP PRN (18:15)
--- NOTE | 2018-01-06 18:28 | NUR ---
PATIENT IS SITTING IN BED. NO SIGNS OF DISTRESS ON 2L NC. CALLED [facility] TO ORDER HER A TRAY FOR DINNER. WILL CONTINUE TO MONITOR THE PATIENT.
--- NOTE | 2018-01-06 19:15 | NUR ---
RECEIVED PATIENT REPORT AT BEDSIDE. PATIENT AWAKE, ALERT AND ORIENTED. NO S/S OF DISTRESS NOTED. PATIENT ON 2L O2. PATIENT DENIES ANY SOB AT THE MOMENT. BREATHING EVEN AND UNLABORED. PATIENT DENIES PAIN AT THIS TIME. PATIENT ON TELE MONITORING. BED LOWERED WITH CALL LIGHT WITHIN REACH. WILL CONTINUE TO MONITOR
--- NOTE | 2018-01-06 19:15 | NUR ---
GAVE BEDSIDE REPORT TO APPLICATIONS TESTER NURSE. PATIENT IS IN STABLE CONDITION.
[2018-01-06] MEDS ORDERED: BUDESONIDE 0.5 MG/2 ML NEBU INH SCH (19:30)
[2018-01-06] MEDS: ADVAIR INH SCH (19:30)
[2018-01-06 20:00] VITALS: BP 142/78
--- NOTE | 2018-01-06 20:22 | NUR ---
TRIED PT'S ABG WITH NO SUCCESS. PT DOES NOT WANT TO TRY AGAIN TODAY BECAUSE SHE IS IN PAIN AND WANTS TO SLEEP. PT WANTS TO TRY AGAIN IN MORNING. WILL ENDORSE TO MORNING SHIFT.
--- NOTE | 2018-01-06 22:25 | NUR ---
PATIENT ASLEEP IN BED. NO S/S OF DISTRESS
[2018-01-07] VITALS: BP 151/76
--- NOTE | 2018-01-07 02:07 | NUR ---
PATIENT ASLEEP IN BED. NO S/S OF DISTRESS NOTED
[2018-01-07] MEDS: methylPREDNISolone SS 125 MG/2 ML VIAL IVP SCH ×3 (04:59→21:16)
[2018-01-07 05:05] VITALS: BP 153/80
--- NOTE | 2018-01-07 05:07 | NUR ---
PATIENT AMBULATED TO THE BATHROOM TO VOID. NO S/S OF DISTRESS
[2018-01-07 06:17] LABS: T4 (THYROXINE) 7.7 ug/dL (4.5-12.0)
[2018-01-07 06:23] LABS: BASOPHILS % (AUTO) 0.2 % (0.0-2.0); EOSINOPHILS % (AUTO) 0.4 % (0.0-4.0); HEMATOCRIT 39.1 % (36-48); HEMOGLOBIN 13.1 g/dL (12.0-16.0); LYMPHOCYTES # (AUTO) 1.3 K/uL (2.5-16.5); LYMPHOCYTES % (AUTO) 21.1 % (20.5-51.1); MEAN CORPUSCULAR HEMOGLOBIN 33 pg (27-31); MEAN CORPUSCULAR HGB CONC 34 g/dL (33-37); MEAN CORPUSCULAR VOLUME 99.1 fL (80-94); MONOCYTES # (AUTO) 0.6 K/uL (0.8-1.0); MONOCYTES % (AUTO) 9.5 % (1.7-9.3); NEUTROPHILS # (AUTO) 4.3 K/uL (1.8-7.7); NEUTROPHILS % (AUTO) 68.8 % (42.2-75.2); PLATELET COUNT (AUTO) 293 K/uL (140-450); RED BLOOD CELL COUNT(AUTO) 3.94 MIL/uL (4.20-5.40); RED CELL DISTRIBUTION WIDTH 12.9 % (11.6-13.7); WHITE BLOOD COUNT (AUTO) 6.3 K/uL (4.8-10.8)
[2018-01-07 06:46] LABS: CARBON DIOXIDE 23.4 mmol/L (21-32); CHLORIDE 101 mmol/L (98-107); GLUCOSE 84 mg/dL (74-106); POTASSIUM 4.4 mmol/L (3.5-5.1); SODIUM SERUM 134 mmol/L (136-145); UREA NITROGEN, BLOOD 25 mg/dL (7-18)
--- NOTE | 2018-01-07 07:24 | NUR ---
PATIENT REPORT GIVEN AT BEDSIDE. PATIENT ENDORSED IN STABLE CONDITION
--- NOTE | 2018-01-07 07:24 | NUR ---
RECEIVED REPORT FROM NIGHTSHIFT NURSE AT BEDSIDE. PATIENT IS ALERT AND ORIENTED X4. PATIENT PRESENTS IN SEMI-FOWLERS POSITION. NO RESPIRATORY DISTRESS NOTED. NO RESPIRATORY DEPRESSION NOTED. NO COMPLAINTS OF PAIN AT THIS TIME. PATIENT ON 2L O2 VIA NC WITH O2 SATURATION AT 95%. PATIENT SKIN IN TACT. IV NOTED ON LEFT AC 20G AT 60 ML/HR. PUT CALL LIGHT WITHIN REACH OF PATIENT. UPDATED PATIENT'S BOARD. WILL CONTINUE TO MONITOR PATIENT.
[2018-01-07] MEDS: NACL 0.9% 1,000 ML IV SCH (07:37)
[2018-01-07 08:00] VITALS: BP 155/79
[2018-01-07] MEDS: ADVAIR INH SCH ×2 (08:58→18:55)
[2018-01-07] MEDS: HYDROCHLOROTHIAZIDE 25 MG TAB PO SCH (08:59)
--- NOTE | 2018-01-07 08:59 | NUR ---
PATIENT TOOK ORETIC MEDICATION FOR BLOOD PRESSURE. WILL CONTINUE TO MONITOR PATIENT.
--- NOTE | 2018-01-07 09:17 | NUR ---
PATIENT HAS BEEN SCREENED AND CATEGORIZED HIGH NUTRITION RISK. PATIENT WILL BE SEEN WITHIN 1-2 DAYS OF ADMISSION. 01/07/18 01/08/[address]
--- NOTE | 2018-01-07 11:13 | NUR ---
PATIENT'S FAMILY AT BEDSIDE AT THIS TIME. PATIENT IN STABLE CONDITION. WILL CONTINUE TO MONITOR PATIENT.
[2018-01-07 12:00] VITALS: BP 136/61
--- NOTE | 2018-01-07 13:16 | NUR ---
01/07/18 RD INITIAL ASSESSMENT COMPLETED PLEASE REFER TO NUTRITION ASSESSMENT UNDER CARE ACTIVITY FOR ESTIMATED NUTRITIONAL NEEDS. 1. CONTINUE REGULAR DIET TOLERATED 2. CONSIDER DIET EDUCATION FOR INCREASING PO INTAKE AT HOME. 3. RECOMMEND BOOST PLUS TID WITH MEALS. 4. RECOMMEND MULTIVITAMIN ONCE A DAY. 5. RD TO FOLLOW-UP 2-3 DAYS, HIGH RISK SOLO CROWDER RD
--- NOTE | 2018-01-07 13:45 | NUR ---
PATIENT RESTING IN BED. NO DISTRESS NOTED. NO PAIN NOTED. WILL CONTINUE TO MONITOR PATIENT.
--- NOTE | 2018-01-07 15:02 | NUR ---
clinical /chart reviewed per MSG criteria.
--- NOTE | 2018-01-07 15:22 | NUR ---
PATIENT RESTING IN BED. NO DISTRESS NOTED.
[2018-01-07 16:00] VITALS: BP 155/77
--- NOTE | 2018-01-07 17:22 | NUR ---
PATIENT RESTING IN BED. NO DISTRESS NOTED. WILL CONTINUE TO MONITOR PATIENT.
[2018-01-07] MEDS: ALBUTEROL SULFATE/IPRATROPIU 3 ML SOL IH SCH ×2 (19:28→23:11)
[2018-01-07] MEDS ORDERED: BUDESONIDE 0.5 MG/2 ML NEBU INH SCH (19:30)
--- NOTE | 2018-01-07 19:30 | NUR ---
PT IN BED WITH HOB UP 45 AOX 4 PT HAS 2 L N/C .NO S/S OF DISTRESS IV SITE FLUSHED PT AND RUNNING NACL AT 6OMLS /HR . PT BREATHING EVEN RESPIRATIONS LUNGS ARE CLEAR BUT BASES OF LUNG SOUNDS DIMINISHED. BED LOW SIDE RAILS UP X 2 AND CALL MONTEMAYOR IN REACH.
--- NOTE | 2018-01-07 19:30 | NUR ---
GAVE REPORT TO NIGHTSHIFT NURSE. PATIENT IN STABLE CONDITION.
[2018-01-07 20:00] VITALS: BP 114/63
--- NOTE | 2018-01-07 23:00 | NUR ---
LAB CALLED URINE NEEDED TO BE COLLECTED FOR URINALYSIS, PT AMBULATED TO BATHROOM AFTER HER NEB TXTMENTS. SHE VOIDED AND URINE WAS COLLECTED. URINE LOOKED YELLOW AND SLIGHTLY CLOUDY. SENT TO LAB.
[2018-01-08] VITALS: BP 154/68
[2018-01-08] MEDS: NACL 0.9% 1,000 ML IV SCH (00:17)
[2018-01-08 00:28] LABS: APPEARANCE,URINE CLEAR (CLEAR); BILIRUBIN,URINE NEGATIVE (NEGATIVE); BLOOD, URINE NEGATIVE (NEGATIVE); COLOR,URINE YELLOW (YELLOW); LEUKOCYTE ESTERASE ,URINE TRACE (NEGATIVE); NITRITE, URINE POSITIVE (NEGATIVE); UGLUCOSE NEGATIVE (NEGATIVE)
[2018-01-08 00:40] LABS: BARBITURATE, URINE NEG. ng/ml (NEG <=200); BENZODIAZEPINE, URINE NEG. ng/mL (NEG <=200); CANNABINOID, URINE NEG. ng/mL (NEG <=50); COCAINE, URINE NEG. ng/mL (NEG <=300); OPIATE, URINE NEG. ng/mL (NEG <=2000); PHENCYCLIDINE SCREEN,URINE NEG. ng/mL (NEG <=25)
[2018-01-08 00:49] LABS: RBC,URINE 0-5 (RARE) /HPF (0-5); WBC,URINE 0-5 (RARE) /HPF (0-5)
[2018-01-08] MEDS: ALBUTEROL SULFATE/IPRATROPIU 3 ML SOL IH SCH ×3 (03:22→11:04)
--- NOTE | 2018-01-08 03:40 | NUR ---
RESIDENT DR. SARABIA MADE AWARE OF LAB RESULTS OF URINALYSIS. PT HAS + [address] SARABIA WILL PROVIDE ORDERS FOR THIS PT.
[2018-01-08 04:00] VITALS: BP 162/74
[2018-01-08] MEDS ORDERED: LEVOFLOXACIN 500 MG/D5W PREMIX 100 ML IV SCH (05:00)
--- NOTE | 2018-01-08 05:00 | NUR ---
NEW ORDER NOTED FOR LEVAQUIN IVP PT IN BED NO C/O VOICED CALL LIGHT IN REACH.
[2018-01-08] MEDS: methylPREDNISolone SS 40 MG/ML VIAL IVP SCH ×2 (05:27→12:08)
[2018-01-08 06:35] LABS: HEMATOCRIT 35.1 % (36-48); HEMOGLOBIN 11.7 g/dL (12.0-16.0); MEAN CORPUSCULAR HEMOGLOBIN 33 pg (27-31); MEAN CORPUSCULAR HGB CONC 33 g/dL (33-37); MEAN CORPUSCULAR VOLUME 99.5 fL (80-94); PLATELET COUNT (AUTO) 244 K/uL (140-450); RED BLOOD CELL COUNT(AUTO) 3.53 MIL/uL (4.20-5.40); RED CELL DISTRIBUTION WIDTH 13.1 % (11.6-13.7); WHITE BLOOD COUNT (AUTO) 9.1 K/uL (4.8-10.8)
[2018-01-08 06:54] LABS: ANION GAP 13.7 (8-16); CARBON DIOXIDE 24.7 mmol/L (21-32); CHLORIDE 104 mmol/L (98-107); CREATININE 0.9 mg/dL (0.6-1.3); GLUCOSE 153 mg/dL (74-106); POTASSIUM 4.4 mmol/L (3.5-5.1); SODIUM SERUM 138 mmol/L (136-145); UREA NITROGEN, BLOOD 20 mg/dL (7-18)
[2018-01-08 07:04] LABS: MAGNESIUM 1.8 mg/dL (1.8-2.4)
[2018-01-08 07:28] LABS: LYMPHOCYTES % (MANUAL) 3 % (20-46); MONOCYTES % (MANUAL) 2 % (5-12)
--- NOTE | 2018-01-08 07:30 | NUR ---
RECEIVED REPORT FROM SHAMPOOER NURSE AT BEDSIDE. PT IS AAOX4. ON 2 L O2 VIA NC. NO RESPIRATORY DISTRESS NOTED. DENIES PAIN. SKIN INTACT. IV NOTED ON LEFT AC 20G AT 60 ML/HR. CALL LIGHT WITHIN REACH OF PATIENT. UPDATED BOARD. WILL CONTINUE TO MONITOR PATIENT.
--- NOTE | 2018-01-08 07:44 | NUR ---
PT IS NOW ON ROOM AIR PER MD ORDER, WILL RECHECK O2 SAT AFTER 30MIN.
[2018-01-08 08:00] VITALS: BP 163/75
[2018-01-08] MEDS: ADVAIR INH SCH (08:12)
[2018-01-08] MEDS: HYDROCHLOROTHIAZIDE 25 MG TAB PO SCH (08:12)
--- NOTE | 2018-01-08 08:16 | NUR ---
PT O2 SAT 96% ON ROOM AIR. NO S/S ACUTE DISTRESS.
[2018-01-08] MEDS ORDERED: LACTOBACILLUS RHAMNOSUS GG 1 EACH CAP PO SCH (09:00)
[2018-01-08] MEDS ORDERED: MULTIVITAMIN/MINERALS 1 TAB PO SCH (09:00)
--- NOTE | 2018-01-08 09:30 | NUR ---
WILBUR REPORTED TO DR LIMON
[2018-01-08] MEDS ORDERED: LEVO500T2 PO (10:19)
[2018-01-08] MEDS ORDERED: LACT10CA PO (10:19)
[2018-01-08] MEDS ORDERED: ALBU0.0912 IH (10:19)
[2018-01-08] MEDS ORDERED: ORE25 PO (10:19)
[2018-01-08] MEDS ORDERED: FLUT1AER4 IH (10:19)
[2018-01-08] MEDS ORDERED: METH4TAB3 PO (10:54)
[2018-01-08] MEDS ORDERED: PNEUMOCOCCAL VACCINE 23 MCG/0.5 ML VIAL IMVAC SCH (11:20)
[2018-01-08] MEDS ORDERED: INFLUENZA VIRUS VACCINE QUAD 0.5 ML SYR IMVAC SCH (11:20)
--- NOTE | 2018-01-08 11:47 | NUR ---
MADE PT AWARE OF THE IMPORTANCE OF PNA VAC FOR COPD PT. PT AGREES TO RECEIVE PNA VAC.
[2018-01-08 12:00] VITALS: BP 153/67
--- NOTE | 2018-01-08 12:45 | NUR ---
PNA VAC GIVEN. PT DISCHARGED PER MD ORDER. DISCHARGE INSTRUCTION GIVEN, MEDICATION TEACHING PROVIDED. PT VERBALIZED UNDERSTANDING. MADE PT AWARE OF SCHEDULED APPOINTMENT AND REFERRAL FOR PFT. ENCOURAGED PT TO FIRE DISPATCHER RX TODAY AND START THE MEDS MAUREEN. PT AGREED. PT DENIES PAIN, NAUSEA, VOMITING. IV CATH REMOVED, TIP INTACT, PRESSURE APPLIED. PT LEFT IN STABLE CONDITION AND WAS WHEELED TO LOBBY BY SINTER FEEDER. PT'S BROTHER IS WITH THE HER.
[2018-01-09] MEDS ORDERED: LEVOFLOXACIN 250 MG/D5 PREMIX 50 ML IV SCH (05:00)
[2018-01-09] MEDS ORDERED: HYDROCHLOROTHIAZIDE 25 MG TAB PO SCH (09:00)
== END 2018-01-08 12:45 | disposition home or self-care (01) | DRG 291 ==
LOC: MED 12:24 → MTU 15:02
PROVIDERS: ADMIT Student in an Organized Health Care Education/Training Program; ATTEND Student in an Organized Health Care Education/Training Program
DX: I11.0 Hypertensive heart disease with heart failure (principal); J96.21 Acute and chronic respiratory failure with hypoxia; E87.1 Hypo-osmolality and hyponatremia; J44.1 Chronic obstructive pulmonary disease with (acute) exacerbation; J44.0 Chronic obstructive pulmonary disease with (acute) lower respiratory infection; I50.43 Acute on chronic combined systolic (congestive) and diastolic (congestive) heart failure; I48.91 Unspecified atrial fibrillation; E11.9 Type 2 diabetes mellitus without complications; I16.0 Hypertensive urgency; N63.20 Unspecified lump in the left breast, unspecified quadrant; E78.5 Hyperlipidemia, unspecified; F17.210 Nicotine dependence, cigarettes, uncomplicated; J98.4 Other disorders of lung; Z85.3 Personal history of malignant neoplasm of breast; Z91.041 Radiographic dye allergy status; Z91.19 Patient's noncompliance with other medical treatment and regimen; Z79.899 Other long term (current) drug therapy; Z71.6 Tobacco abuse counseling
CPT/HCPCS: 36415; 36600; 71045; 76641; 80048; 80053; 80305; 81001; 82150; 82550; 82803; 83036; 83690; 83735; 83880; 84100; 84436; 84439; 84443; 84479; 84484; 85025; 85379; 85610; 85730; 86886; 86900; 86901; 87081; 87086; 87186; 90732; 93005; 94640; 96374; 99285; J0360; J1644; J1956; J2920; J2930; J7030; J7613; J7620; J7626; J7644; Q0092

== ENCOUNTER 2018-06-27 12:05 | Inpatient (IN) | payer OTHER ==
[~2018-06-27] VITALS: Ht 180.3 cm; Wt 44.9 kg
[~2018-06-27 12:05] MED LIST changes: -BUDE180P IH; -CARER90 PO; +LACT10CA PO; +LEVO500T2 PO; -LEVO750T2 PO; -MAG400 PO; +METH4TAB3 PO; -NICO-532 TD; -NITR0.4T1 SL; +ORE25 PO
[2018-06-27 12:16] VITALS: BP 155/96
--- NOTE | 2018-06-27 12:20 | NUR ---
bib son with c/o sob x last night accessory muscle use noted---2-3 word sentences hx--copd, rx---albuterol, spiriva currently on tamiflu
[2018-06-27] MEDS ORDERED: ALBUTEROL SULFATE/IPRATROPIU 3 ML SOL IH ONE (12:25)
[2018-06-27] MEDS ORDERED: methylPREDNISolone SS 125 MG/2 ML VIAL IVP ONE (13:15)
[2018-06-27] MEDS ORDERED: FAMOTIDINE 20 MG/2 ML VIAL IVP ONE (13:15)
[2018-06-27] MEDS ORDERED: IPRATROPIUM 0.02% 0.5 MG/2.5 ML NEBU INH ONE (13:15)
[2018-06-27] MEDS ORDERED: diphenhydrAMINE 50 MG/ML VIAL IVP ONE (13:15)
[2018-06-27] MEDS ORDERED: MAGNESIUM SULFATE 50% 1,000 MG in NACL 0.9% 50 ML IV ONE (13:15)
[2018-06-27] MEDS ORDERED: ALBUTEROL 0.083% 2.5 MG/3 ML NEBU INH ONE (13:15)
--- NOTE | 2018-06-27 13:45 | NUR ---
RT AT BEDSIDE.
[2018-06-27] MEDS ORDERED: MAGNESIUM SULFATE 1GM in DEXTROSE 5% 100 ML PREMIX IV SCH (14:00)
[2018-06-27 14:12] LABS: BASOPHILS % (AUTO) 0.5 % (0.0-2.0); EOSINOPHILS # (AUTO) 0.8 K/uL (0-0.4); EOSINOPHILS % (AUTO) 9.7 % (0.0-4.0); HEMATOCRIT 39.4 % (36-48); HEMOGLOBIN 13.2 g/dL (12.0-16.0); LYMPHOCYTES # (AUTO) 1.8 K/uL (2.5-16.5); MEAN CORPUSCULAR HEMOGLOBIN 32 pg (27-31); MEAN CORPUSCULAR HGB CONC 34 g/dL (33-37); MEAN CORPUSCULAR VOLUME 96.5 fL (80-94); MONOCYTES # (AUTO) 0.8 K/uL (0.8-1.0); MONOCYTES % (AUTO) 9.9 % (1.7-9.3); NEUTROPHILS # (AUTO) 4.8 K/uL (1.8-7.7); NEUTROPHILS % (AUTO) 57.9 % (42.2-75.2); PLATELET COUNT (AUTO) 309 K/uL (140-450); RED BLOOD CELL COUNT(AUTO) 4.09 MIL/uL (4.20-5.40); RED CELL DISTRIBUTION WIDTH 13.2 % (11.6-13.7); WHITE BLOOD COUNT (AUTO) 8.2 K/uL (4.8-10.8)
--- NOTE | 2018-06-27 14:30 | NUR ---
Per pt "feeling better" after m/n tx with son at bedside
[2018-06-27] MEDS ORDERED: SPIMDI INH (14:40)
[2018-06-27 14:41] LABS: ANION GAP 10.9 (8-16); CARBON DIOXIDE 30.2 mmol/L (21-32); CHLORIDE 98 mmol/L (98-107); CREATININE 0.8 mg/dL (0.6-1.3); GLUCOSE 91 mg/dL (74-106); POTASSIUM 4.1 mmol/L (3.5-5.1); SODIUM SERUM 135 mmol/L (136-145); UREA NITROGEN, BLOOD 10 mg/dL (7-18)
[2018-06-27 14:44] LABS: PROTHROMBIN TIME 9.9 secs (10.8-13.4)
[2018-06-27 15:42] LABS: ALBUMIN 4.2 g/dL (3.4-5.0); ASPARTATE AMINOTRANSFERASE 19 U/L (15-37); TOTAL BILIRUBIN 0.4 mg/dL (0.0-1.0)
[2018-06-27] MEDS ORDERED: LEVOFLOXACIN 500 MG/D5W PREMIX 100 ML IV ONE (15:45)
[2018-06-27] MEDS ORDERED: HYDROcodone/APAP 7.5/325 MG 1 TAB PO PRN (16:50)
[2018-06-27] MEDS ORDERED: ONDANSETRON 4 MG/2 ML VIAL IVP PRN (16:50)
[2018-06-27] MEDS ORDERED: ACETAMINOPHEN 325 MG TAB PO PRN (16:50)
[2018-06-27] MEDS ORDERED: ALBUTEROL SULFATE/IPRATROPIU 3 ML SOL IH PRN (16:55)
[2018-06-27 17:48] LABS: CHOL/HDL RATIO 2.4 (1-4.5); PHOSPHORUS 4.4 mg/dL (2.5-4.9); THYROID STIMULATING HORMONE 2.04 uIU/mL (0.34-3.74)
[2018-06-27 18:13] LABS: FREE T4 (FREE THYROXINE) 1.17 ng/dL (0.76-1.46)
--- NOTE | 2018-06-27 18:21 | NUR ---
awaiting for admitting orders, aao pt notified
[2018-06-27] MEDS ORDERED: guaiFENesin 20 MG/ML UDC PO PRN ×2 (18:35)
--- NOTE | 2018-06-27 18:35 | NUR ---
Patient will be admitted to care of Dr Johnson. Admited to tele. Will go to room 112a. Belongings list completed. Report to PEGGY Davies.
--- NOTE | 2018-06-27 18:40 | NUR ---
PT ARRIVED FROM ER IN [facility], PT PLACED ON SHIPYARD HELPER, REPORT RECEIVED FROM CALLUM RN, PT AWAKE ALERT, ABLE TO AMBULATE FROM HALLWAY TO BED WITHOUT ASSIST, RESP EVEN UNLABORED ON 2L NC O2, SPEAKS CLEARLY WITHOUT SOB, SKIN WARM DRY COLOR WNL, MOVES ALL EXT, VITALS TAKEN, DENIES PAIN OR DISCOMFORT AT THIS TIME, PT ORIENTED TO ROOM AND FLOOR, CALL MONTEMAYOR WITHIN REACH, SIDE RAILS UP, BED LOCKED IN LOW POSITION, PT REQUESTS DINNER, FNS CALLED FOR LATE DINNER TRAY.
--- NOTE | 2018-06-27 19:19 | NUR ---
REPORT GIVEN TO CENTRIFUGAL STATION OPERATOR NURSE TORIBIO CHAMBERS IN STABLE CONDITION.
--- NOTE | 2018-06-27 19:20 | NUR ---
RECEIVED REPORT FORM DONTRELL RN DAYSHIFT NURSE AT BEDSIDE FOR CONTINUITY OF CARE, PT INSTABLE CONDITION, FAMILY AT BEDSIDE.
[2018-06-27] MEDS: ALBUTEROL SULFATE/IPRATROPIU 3 ML SOL IH SCH (19:42)
[2018-06-27 19:45] VITALS: BP 139/76
--- NOTE | 2018-06-27 19:45 | NUR ---
RESPIRATORY AT BEDSIDE PROVIDING BREATHING TX AT THIS TIME.
[2018-06-27] MEDS ORDERED: DOCUSATE SODIUM 100 MG GELCAP PO SCH (21:00)
--- NOTE | 2018-06-27 21:00 | NUR ---
PT RELIEVED ALL MEDS DUE (SOLUMEDROL 125MG/IVP AND COZAAR /PO ). PT IN LOW BED WITH SIDE RAILS UP X2. PT REFUSES TO WEAR GOWN AND IS WEARING PJ'S INSTEAD. PT HAS NO C/O OF PAIN OR DISTRESS, PT REFUSES SUPPLEMENTAL O2 VIA N/C AT THIS TIME , HOWEVER NO SOB NOTED. PT LUNG SOUNDS DIMINISHED THROUGHOUT . B/S POSITIVE ALL 4 QUADS. PT CALL MONTEMAYOR IN REACH AND ALL REQUESTED NEEDS ATTENDED BY STAFF.
[2018-06-27] MEDS: LOSARTAN 25 MG TAB PO SCH (21:12)
[2018-06-27] MEDS: methylPREDNISolone SS 125 MG/2 ML VIAL IVP SCH (21:13)
[2018-06-28] VITALS: BP 143/77
--- NOTE | 2018-06-28 00:20 | NUR ---
PT IN LOW BED WITH SIDE RAILS UP X2 PT ASLEEP WITH NO SUPPLEMENTAL O2 IN PLACE, NO S/S OF SOB PT HAD NO C/O VOICED AT THIS TIME. PT REMINDED TO GIVE SPUTUM SAMPLE POST RESPIRATORY TREATMENT. V/S FOLLOWS T 98.1 P 77 R 18 B/P 143/77 02 94% WITH R/A.
--- NOTE | 2018-06-28 03:45 | NUR ---
PT IN BED ASLEEP NO S/S OF PAIN OR DISTRESS NOTED. V/S FOLLOWS T 98.0 P 80 R 18 B/P 172/91 02 90% WITH R/A. PT HAS NO SOB NOTED. WILL MEDICATE PT FOR SYSTOLIC B/P OF 172.
[2018-06-28 04:00] VITALS: BP 172/91
[2018-06-28] MEDS: methylPREDNISolone SS 125 MG/2 ML VIAL IVP SCH ×3 (04:52→21:13)
[2018-06-28] MEDS: cloNIDine 0.1 MG TAB PO PRN ×3 (04:55→07:00)
--- NOTE | 2018-06-28 05:00 | NUR ---
MEDICATED PRN CATAPRES FOR HIGH SYSTOLIC B/P WILL MONITOR FOR EFFECTIVENESS.
[2018-06-28] MEDS: ALBUTEROL SULFATE/IPRATROPIU 3 ML SOL IH SCH ×3 (06:25→19:02)
[2018-06-28 06:41] LABS: BASOPHILS % (AUTO) 0.1 % (0.0-2.0); HEMATOCRIT 37.4 % (36-48); HEMOGLOBIN 12.6 g/dL (12.0-16.0); LYMPHOCYTES # (AUTO) 0.4 K/uL (2.5-16.5); MEAN CORPUSCULAR HEMOGLOBIN 32 pg (27-31); MEAN CORPUSCULAR HGB CONC 34 g/dL (33-37); MEAN CORPUSCULAR VOLUME 95.4 fL (80-94); MONOCYTES % (AUTO) 0.8 % (1.7-9.3); NEUTROPHILS # (AUTO) 4.4 K/uL (1.8-7.7); NEUTROPHILS % (AUTO) 90.1 % (42.2-75.2); PLATELET COUNT (AUTO) 290 K/uL (140-450); RED BLOOD CELL COUNT(AUTO) 3.92 MIL/uL (4.20-5.40); RED CELL DISTRIBUTION WIDTH 12.8 % (11.6-13.7); WHITE BLOOD COUNT (AUTO) 4.9 K/uL (4.8-10.8)
--- NOTE | 2018-06-28 07:00 | NUR ---
DR. ROBLES PAGED FOR PT DUE TO PT HAVING A HEADACHE AND REQUESTING PRN PAIN MEDS , HOWEVER NO PAIN MEDS ORDERED ON THE OCT. AWAITING RESPONSE BACK FORM
[2018-06-28 07:01] LABS: ANION GAP 12.8 (8-16); CARBON DIOXIDE 25.6 mmol/L (21-32); CHLORIDE 99 mmol/L (98-107); CREATININE 0.9 mg/dL (0.6-1.3); GLUCOSE 144 mg/dL (74-106); POTASSIUM 4.4 mmol/L (3.5-5.1); SODIUM SERUM 133 mmol/L (136-145); UREA NITROGEN, BLOOD 15 mg/dL (7-18)
--- NOTE | 2018-06-28 07:09 | NUR ---
PAGED BACK WITH TYLENOL ORDER OF 650MG Q4HRS FOR MILD PAIN /FEVER.
--- NOTE | 2018-06-28 07:10 | NUR ---
GAVE REPORT TO AMY WOODS DAYSHIFT NURSE AT BEDSIDE FOR CONTINUITY OF CARE, PT IN STABLE CONDITION.
--- NOTE | 2018-06-28 07:15 | NUR ---
RECEIVED REPORT FROM EMPLOYMENT ATTORNEY RN. PT IN STABLE CONDITION. REPORTS MILD HEADACHE, WILL ADMIN TYLENOL WHEN AVAILABLE. PT REPORTS FEELING SOB. RR 22, 92% ON 1L NC. NO S/S RESPIRATORY DISTRESS. INTERMITTENT COUGHING. TOLD PT THAT WE NEED SPUTUM SAMPLE. PER EMPLOYMENT ATTORNEY RN, RT IS AWARE. REDNESS ON RT ABDOMEN, PER PT THIS IS DUE TO RECEIVING RADIATION PREVIOUSLY. SKIN INTACT. PT IS AMBULATORY, FALL RISK, REFUSING YELLOW GOWN AND SOCKS. IV SITE PATENT AND ASYMPTOMATIC, ON SL. UPDATED BOARD AND EXPLAINED POC. PT VERBALIZED COMPLETE UNDERSTANDING. ALL SAFETY PRECAUTIONS IN PLACE, WILL CONTINUE TO MONITOR.
[2018-06-28 08:00] VITALS: BP 135/69
[2018-06-28] MEDS: LOSARTAN 25 MG TAB PO SCH ×2 (08:47→21:12)
--- NOTE | 2018-06-28 08:47 | NUR ---
ADMINISTERED 0900 SCHEDULED MED PER MD ORDERS. PT IN STABLE CONDITION. ADMINISTERED TYLENOL FOR MILD HEADACHE. ALL SAFETY PRECAUTIONS IN PLACE, WILL CONTINUE TO MONITOR.
[2018-06-28] MEDS: ACETAMINOPHEN 325 MG TAB PO PRN ×2 (08:48→21:12)
--- NOTE | 2018-06-28 09:32 | NUR ---
PATIENT HAS BEEN SCREENED AND CATEGORIZED HIGH NUTRITION RISK. PATIENT WILL BE SEEN WITHIN 1-2 DAYS OF ADMISSION. 06/28/18-06/29/[address]
[2018-06-28 12:00] VITALS: BP 140/66
--- NOTE | 2018-06-28 12:38 | NUR ---
NOTIFIED DR. ROBLES THAT SODIUM IS 133 AND PT IS ON SL, NO IVF ORDERS.
[2018-06-28] MEDS ORDERED: LEVOFLOXACIN 250 MG TAB PO SCH (13:00)
--- NOTE | 2018-06-28 13:51 | NUR ---
06/28/18 RD INITIAL ASSESSMENT COMPLETED PLEASE REFER TO NUTRITION ASSESSMENT UNDER CARE ACTIVITY FOR ESTIMATED NUTRITIONAL NEEDS. RD RECOMMENDATIONS: 1. CONTINUE 2 GM NA DIET TOLERATED. -NOTE PT CONSUMED ~90% OF BREAKFAST THIS MORNING. 2. RD WILL F/U 3-5 DAYS; MODERATE RISK. NUSRAT OROURKE, RD
--- NOTE | 2018-06-28 15:23 | NUR ---
PT CONTINUES TO SATURATE ABOVE 90% ON RA. NO S/S RESPIRATORY DISTRESS. WILL CONTINUE TO MONITOR.
[2018-06-28 16:00] VITALS: BP 131/55
--- NOTE | 2018-06-28 17:14 | NUR ---
PT SLEEPING IN BED, AROUSABLE BY VOICE. PT CONTINUES TO SATURATE ABOVE 90% ON RA. NO S/S RESPIRATORY DISTRESS. WILL CONTINUE TO MONITOR. Addendum: 06/28/18 at 1935 by Mirela Bay Meng, RN DENIES PAIN AND DISCOMFORT.
--- NOTE | 2018-06-28 19:05 | NUR ---
ENDORSED POC TO X RAY EQUIPMENT MECHANIC RN. PT IN STABLE CONDITION.
--- NOTE | 2018-06-28 19:12 | NUR ---
PATIENT INSTRUCTED AT LENGTH ON PROPER USE AND FREQUENCY OF INCENTIVE SPIROMETER. HAD A DIFFICULT TIME PERFORMING DUE TO LACK OF UNDERSTANDING. END RESULT WAS A POOR EFFORT WITH A MAXIMUM VOLUME OF 500ML AND 6 ATTEMPTS.
--- NOTE | 2018-06-28 19:40 | NUR ---
RECEIVED REPORT FROM DAY SHIFT NURSE AMY-RN AT BEDSIDE. PT RESTING IN BED, AOX4, ON ROOM AIR WITH IV SITE ON LEFT AC #20G. SKIN INTACT HOWEVER HAS LEFT BREAST REDNESS DUE TO CANCER RADIATION. DISCUSSED PLAN OF CARE AND PT VERBALIZED UNDERSTANDING. NO S/S OF RESPIRATORY DISTRESS OR DISCOMFORT NOTED AT THIS TIME. BED IN LOWEST POSITION, BED BREAKS ON, BOTH SIDE RAILS UP, BED ALARM ON AND FALL PRECAUTIONS ARE IN PLACE HOWEVER PT REFUSES TO USE YELLOW GOWN. BEDSIDE TABLE AND CALL LIGHT ARE WITHIN REACH. WILL CONTINUE TO MONITOR.
[2018-06-28 20:00] VITALS: BP 158/56
--- NOTE | 2018-06-28 20:00 | NUR ---
VITAL SIGNS TAKEN AND TOLERATED WELL- ELEVATED B/P NOTED. NO S/S OF RESPIRATORY DISTRESS OR DISCOMFORT NOTED AT THIS TIME. WILL CONTINUE TO MONITOR.
--- NOTE | 2018-06-28 21:13 | NUR ---
SCHEDULED MEDICATION GIVEN AND TOLERATED WELL. TYLENOL GIVEN FOR HEADACHE. NO S/S OF RESPIRATORY DISTRESS OR DISCOMFORT NOTED AT THIS TIME. WILL CONTINUE TO MONITOR.
--- NOTE | 2018-06-28 23:00 | NUR ---
PT SLEEPING AT THIS TIME. NO S/S OF RESPIRATORY DISTRESS OR DISCOMFORT NOTED AT THIS TIME. WILL CONTINUE TO MONITOR.
[2018-06-29] VITALS: BP 146/58
--- NOTE | 2018-06-29 | NUR ---
VITAL SIGNS TAKEN AND TOLERATED WELL. NO S/S OF RESPIRATORY DISTRESS OR DISCOMFORT NOTED AT THIS TIME. WILL CONTINUE TO MONITOR.
--- NOTE | 2018-06-29 02:00 | NUR ---
PT CONTINUES TO SLEEP. NO S/S OF RESPIRATORY DISTRESS OR DISCOMFORT NOTED AT THIS TIME. WILL CONTINUE TO MONITOR.
[2018-06-29 04:00] VITALS: BP 148/59
--- NOTE | 2018-06-29 04:00 | NUR ---
VITAL SIGNS TAKEN AND TOLERATED WELL. NO S/S OF RESPIRATORY DISTRESS OR DISCOMFORT NOTED AT THIS TIME. WILL CONTINUE TO MONITOR.
[2018-06-29] MEDS: methylPREDNISolone SS 125 MG/2 ML VIAL IVP SCH ×3 (04:11→20:31)
--- NOTE | 2018-06-29 04:11 | NUR ---
SCHEDULED MEDICATION GIVEN AND TOLERATED WELL. NO S/S OF RESPIRATORY DISTRESS OR DISCOMFORT NOTED AT THIS TIME. WILL CONTINUE TO MONITOR.
--- NOTE | 2018-06-29 06:00 | NUR ---
PT SLEEPING IN BED. NO S/S OF RESPIRATORY DISTRESS OR DISCOMFORT NOTED AT THIS TIME. WILL CONTINUE TO MONITOR.
[2018-06-29] MEDS: ALBUTEROL SULFATE/IPRATROPIU 3 ML SOL IH SCH ×3 (06:55→19:35)
[2018-06-29 07:13] LABS: ANION GAP 10.4 (8-16); CARBON DIOXIDE 26.6 mmol/L (21-32); CHLORIDE 104 mmol/L (98-107); CREATININE 0.8 mg/dL (0.6-1.3); GLUCOSE 139 mg/dL (74-106); SODIUM SERUM 137 mmol/L (136-145); UREA NITROGEN, BLOOD 18 mg/dL (7-18)
--- NOTE | 2018-06-29 07:14 | NUR ---
ENDORSED PT CARE TO DAY SHIFT NURSE AMY-PEGGY FOR CONTINUITY OF CARE.
--- NOTE | 2018-06-29 07:17 | NUR ---
RECEIVED REPORT FROM SHOE PLANNER RN. PT IN STABLE CONDITION. DENIES PAIN AND DISCOMFORT AT THIS TIME. PT REPORTS FEELING SOB AT BASELINE. RR 21, 96% ON RA. NO S/S RESPIRATORY DISTRESS. INTERMITTENT COUGHING. EDUCATED PT ON SPUTUM SAMPLE COLLECTION. PT VERBALIZED COMPLETE UNDERSTANDING. REDNESS UNDER LT BREAST, PER PT THIS IS DUE TO RECEIVING RADIATION PREVIOUSLY FOR BREAST CA. SKIN INTACT. PT IS AMBULATORY, FALL RISK, REFUSING YELLOW GOWN AND SOCKS. IV SITE PATENT AND ASYMPTOMATIC, ON SL. UPDATED BOARD AND EXPLAINED POC. PT VERBALIZED COMPLETE UNDERSTANDING. ALL SAFETY PRECAUTIONS IN PLACE, WILL CONTINUE TO MONITOR.
[2018-06-29 08:00] VITALS: BP 149/44
[2018-06-29 08:26] LABS: HEMATOCRIT 35.9 % (36-48); HEMOGLOBIN 12.2 g/dL (12.0-16.0); MEAN CORPUSCULAR HEMOGLOBIN 33 pg (27-31); MEAN CORPUSCULAR HGB CONC 34 g/dL (33-37); MEAN CORPUSCULAR VOLUME 96.1 fL (80-94); PLATELET COUNT (AUTO) 296 K/uL (140-450); RED BLOOD CELL COUNT(AUTO) 3.74 MIL/uL (4.20-5.40); RED CELL DISTRIBUTION WIDTH 13.1 % (11.6-13.7); WHITE BLOOD COUNT (AUTO) 13.5 K/uL (4.8-10.8)
[2018-06-29 08:27] LABS: BASOPHILS % (MANUAL) 0 % (0-2); EOSINOPHILS % (MANUAL) 0 % (0-4); LYMPHOCYTES % (MANUAL) 5 % (20-46); MONOCYTES % (MANUAL) 3 % (5-12)
--- NOTE | 2018-06-29 09:18 | NUR ---
VS TAKEN BEFORE LOSARTAN ADMINISTRATION. BP 153/71, MAP 121, HR 89. REPORTS ONLY MILD HEADACHE. WILL ADMIN TYLENOL PER MD ORDERS.
[2018-06-29] MEDS: LOSARTAN 25 MG TAB PO SCH (09:21)
[2018-06-29] MEDS: ACETAMINOPHEN 325 MG TAB PO PRN ×2 (09:21→20:31)
[2018-06-29] MEDS: LEVOFLOXACIN 250 MG TAB PO SCH (09:21)
--- NOTE | 2018-06-29 09:25 | NUR ---
ST DEPRESSION SEEN ON TELE MONITORING. NO S/S CHEST PAIN OR DISCOMFORT. PT DENIES ALL PAIN AND DISCOMFORT EXCEPT MILD HEADACHE. ADMINISTERED TYLENOL FOR THE HEADACHE. VS STABLE. WILL CONTINUE TO MONITOR. Addendum: 06/29/18 at 1031 by Mirela Bay Meng RN EDUCATED PT TO REPORT ANY CHEST PAIN OR DISCOMFORT AND ANY OTHER GENERAL FEELING OF UNWELLNESS IF THEY OCCUR.
--- NOTE | 2018-06-29 11:38 | NUR ---
ASKED PATIENT IF WE CAN TAKE A PHOTO OF RADIATION DAMAGED SKIN UNDER LEFT BREAST FOR MEDICAL RECORDS. PT REFUSED.
[2018-06-29 12:00] VITALS: BP 154/66
--- NOTE | 2018-06-29 14:28 | NUR ---
PT SLEEPING IN BED, AROUSABLE BY VOICE. NO COMPLAINTS OF PAIN OR DISCOMFORT AT THIS TIME. NO S/S RESPIRATORY DISTRESS. WILL CONTINUE TO MONITOR.
[2018-06-29 16:00] VITALS: BP 143/65
--- NOTE | 2018-06-29 16:29 | NUR ---
NOTIFIED DR. ROBLES THAT PT HAS ST DEPRESSION ON TELE. DR. ROBLES TO ORDER 12 LEAD EKG. ALSO NOTIFIED DR. ROBLES THAT PATIENT HAS BEEN C/O MILD HEADACHE SINCE ADMISSION AND THAT PT STATES SHE HAS NEVER HAD HEADACHES BEFORE.
--- NOTE | 2018-06-29 17:28 | NUR ---
FAXED 12 LEAD EKG TO [phone] ROBLES REQUEST.
--- NOTE | 2018-06-29 19:23 | NUR ---
ENDORSED POC TO BOOK EDITOR RN. PT IN STABLE CONDITION.
[2018-06-29 20:00] VITALS: BP 143/62
--- NOTE | 2018-06-29 20:00 | NUR ---
VITAL SIGNS TAKEN AND TOLERATED WELL. PT C/O HEADACHE- WILL ADMINISTER TYLENOL. NO S/S OF RESPIRATORY DISTRESS OR DISCOMFORT NOTED AT THIS TIME. WILL CONTINUE TO MONITOR.
[2018-06-29] MEDS: LOSARTAN 50 MG TAB PO SCH (20:31)
--- NOTE | 2018-06-29 20:31 | NUR ---
SCHEDULED MEDICATION AND TYLENOL GIVEN. PT TOLERATED WELL. NO S/S OF RESPIRATORY DISTRESS OR DISCOMFORT NOTED AT THIS TIME. WILL CONTINUE TO MONITOR.
--- NOTE | 2018-06-29 22:00 | NUR ---
PT SLEEPING AT THIS TIME. NO S/S OF RESPIRATORY DISTRESS OR DISCOMFORT NOTED AT THIS TIME. WILL CONTINUE TO MONITOR.
[2018-06-30] VITALS: BP 135/60
--- NOTE | 2018-06-30 | NUR ---
VITAL SIGNS TAKEN AND TOLERATED WELL. NO S/S OF RESPIRATORY DISTRESS OR DISCOMFORT NOTED AT THIS TIME. WILL CONTINUE TO MONITOR.
--- NOTE | 2018-06-30 00:35 | NUR ---
PATIENT SHORT OF BREATH. VITALS: 93%, PULSE 69 AND BREATH SOUNDS DIMINISHED. TX ADMINISTERED. HAND HELD NEBULIZER NOT NEBULIZING- SWITCHED OUT WITH NEW ONE. TX GIVEN WITH NO ADVERSE EFFECT. AERATION IMPROVED AND PT VERBALIZED FEELING LESS SHORT OF BREATH.
--- NOTE | 2018-06-30 02:00 | NUR ---
PT SLEEPING IN BED. NO S/S OF RESPIRATORY DISTRESS OR DISCOMFORT NOTED AT THIS TIME. WILL CONTINUE TO MONITOR.
[2018-06-30 04:00] VITALS: BP 141/61
--- NOTE | 2018-06-30 04:00 | NUR ---
VITAL SIGNS TAKEN AND TOLERATED WELL. NO S/S OF RESPIRATORY DISTRESS OR DISCOMFORT NOTED AT THIS TIME. WILL CONTINUE TO MONITOR.
[2018-06-30] MEDS: methylPREDNISolone SS 125 MG/2 ML VIAL IVP SCH ×2 (04:16→12:15)
--- NOTE | 2018-06-30 04:16 | NUR ---
SCHEDULED MEDICATION GIVEN AND TOLERATED WELL. NO S/S OF RESPIRATORY DISTRESS OR DISCOMFORT NOTED AT THIS TIME. WILL CONTINUE TO MONITOR.
--- NOTE | 2018-06-30 06:00 | NUR ---
PT RELAXING IN BED. NO S/S OF RESPIRATORY DISTRESS OR DISCOMFORT NOTED AT THIS TIME. WILL CONTINUE TO MONITOR.
[2018-06-30] MEDS: ALBUTEROL SULFATE/IPRATROPIU 3 ML SOL IH SCH ×2 (06:29→13:01)
[2018-06-30 06:53] LABS: HEMOGLOBIN 11.9 g/dL (12.0-16.0); LYMPHOCYTES # (AUTO) 0.5 K/uL (2.5-16.5); LYMPHOCYTES % (AUTO) 3.8 % (20.5-51.1); MEAN CORPUSCULAR HEMOGLOBIN 32 pg (27-31); MEAN CORPUSCULAR HGB CONC 33 g/dL (33-37); MEAN CORPUSCULAR VOLUME 95.8 fL (80-94); MONOCYTES # (AUTO) 0.3 K/uL (0.8-1.0); MONOCYTES % (AUTO) 2.7 % (1.7-9.3); NEUTROPHILS # (AUTO) 11.5 K/uL (1.8-7.7); NEUTROPHILS % (AUTO) 93.5 % (42.2-75.2); PLATELET COUNT (AUTO) 294 K/uL (140-450); RED BLOOD CELL COUNT(AUTO) 3.76 MIL/uL (4.20-5.40); RED CELL DISTRIBUTION WIDTH 13.2 % (11.6-13.7); WHITE BLOOD COUNT (AUTO) 12.3 K/uL (4.8-10.8)
--- NOTE | 2018-06-30 07:14 | NUR ---
ENDORSED PT CARE TO DAY SHIFT NURSE MARIA DEL CARMEN-RN FOR CONTINUITY OF CARE.
--- NOTE | 2018-06-30 07:15 | NUR ---
RECEIVED BEDSIDE REPORT FROM PM SHIFT NEYMAR. PT AWAKE, VERBAL, NO C/O PAIN OR DISCOMFORT. CALL LIGHT WITHIN REACH. MEAT BONER AND SLICER AT BEDSIDE.
[2018-06-30 07:58] LABS: ANION GAP 10.9 (8-16); CARBON DIOXIDE 26.2 mmol/L (21-32); CHLORIDE 104 mmol/L (98-107); GLUCOSE 129 mg/dL (74-106); POTASSIUM 4.1 mmol/L (3.5-5.1); SODIUM SERUM 137 mmol/L (136-145); UREA NITROGEN, BLOOD 18 mg/dL (7-18)
[2018-06-30 08:00] VITALS: BP 118/64
[2018-06-30 08:04] LABS: ALBUMIN 3.7 g/dL (3.4-5.0); ASPARTATE AMINOTRANSFERASE 15 U/L (15-37); TOTAL BILIRUBIN 0.3 mg/dL (0.0-1.0)
[2018-06-30] MEDS: LOSARTAN 50 MG TAB PO SCH (08:29)
[2018-06-30] MEDS: LEVOFLOXACIN 250 MG TAB PO SCH (08:29)
[2018-06-30] MEDS ORDERED: LEVO750T2 PO (09:22)
[2018-06-30] MEDS ORDERED: PRED10TA5 PO (09:22)
--- NOTE | 2018-06-30 09:30 | NUR ---
PT AMBULATED AROUND UNIT PER DR ROBLES'S ORDER. PT ABLE TO AMB INDEPENDENTLY WITH STEADY GAIT, O2SAT 93-94% IN ROOM AIR DURING ACTIVITY, RESPIRATIONS EVEN & UNLABORED. DR ROBLES IN NURSE'S STATION NOTIFIED OF PT'S ACTIVITY TOLERANCE. PT BACK IN BED, CALL LIGHT WITHIN REACH.
--- NOTE | 2018-06-30 10:40 | NUR ---
SPOKE WITH MELVIN FROM [facility]. FAXED HER THE ORDER FOR NEBULIZER. NO O2 NEEDED, SAT 93% ON RA. FAXED TO [phone] PHONE MELVIN [phone]
--- NOTE | 2018-06-30 11:42 | NUR ---
PT ASLEEP IN BED, RESPIRATIONS EVEN & UNLABORED, FLACC 0. AROUSED PT BY CALLING NAME. VITAL SIGNS OBTAINED. LEFT AC IV INTACT & ASYMPTOMATIC. CALL LIGHT WITHIN REACH.
[2018-06-30 12:00] VITALS: BP 167/85
[2018-06-30] MEDS: cloNIDine 0.1 MG TAB PO PRN (12:23)
--- NOTE | 2018-06-30 13:27 | NUR ---
LEFT 2 MESSAGES FOR MELVIN FROM [facility] ABOUT THE NEBULIZER. NO CALL BACK.
--- NOTE | 2018-06-30 13:41 | NUR ---
SPOKE WITH MELVIN GRAYSON [facility]. SHE SAID THAT THE NEBULIZER WILL BE PROVIDED BY [facility]. SHE SAID [facility] WILL CALL THE PATIENT AND /OR THE FAMILY.
[2018-06-30 13:53] VITALS: BP 128/63
--- NOTE | 2018-06-30 15:00 | NUR ---
PT RECEIVED NEBULIZER MACHINE FROM [facility]. VERBAL & WRITTEN DISCHARGE INSTRUCTIONS PROVIDED TO PT. PT VERBALIZED UNDERSTANDING. ABLE TO RETURN DEMONSTRATE PROPER USE OF NEBULIZER MACHINE. PT DENIES ANY PAIN AT THIS TIME. STATES SON IS ON HIS WAY TO PICK HER UP. CALL LIGHT WITHIN REACH.
--- NOTE | 2018-06-30 15:27 | NUR ---
PT DISCHARGED AT THIS TIME ACCOMPANIED BY SON BINH. ALL BELONGINGS WITH PT. PT LEFT UNIT VIA WHEELCHAIR WITH SULKY DRIVER. NO SIGNS OF DISTRESS, FLACC 0.
== END 2018-06-30 15:27 | disposition home or self-care (01) | DRG 191 ==
LOC: MED 12:05 → MTU 18:14
PROVIDERS: ADMIT Internal Medicine Geriatric Medicine; ATTEND Internal Medicine Geriatric Medicine
DX: J44.1 Chronic obstructive pulmonary disease with (acute) exacerbation (principal); E87.1 Hypo-osmolality and hyponatremia; I10 Essential (primary) hypertension; E78.5 Hyperlipidemia, unspecified; F17.200 Nicotine dependence, unspecified, uncomplicated; Z82.5 Family history of asthma and other chronic lower respiratory diseases; Z85.3 Personal history of malignant neoplasm of breast; I48.91 Unspecified atrial fibrillation; Z91.041 Radiographic dye allergy status
CPT/HCPCS: 36415; 71045; 80048; 80053; 82150; 82306; 82550; 83036; 83690; 83735; 84100; 84439; 84443; 84484; 85025; 85379; 85610; 85730; 87081; 87804; 93005; 94640; 96365; 96367; 96375; 99285; J1200; J1956; J2930; J3475; J3490; J7613; J7620; J7644; Q0092

== ENCOUNTER 2018-07-05 16:27 | Inpatient (IN) | payer OTHER ==
[~2018-07-05] VITALS: Ht 175.3 cm; Wt 53.5 kg
[2018-07-05] VITALS (16 sets, daily range): BP systolic 92–142; BP diastolic 57–92
[~2018-07-05 16:27] MED LIST changes: -LACT10CA PO; -LEVO500T2 PO; +LEVO750T2 PO; -METH4TAB3 PO; -ORE25 PO; +PRED10TA5 PO; +SPIMDI INH
--- NOTE | 2018-07-05 16:40 | NUR ---
PATIENT BIBA WITH C/O SOB, PER REPORT PATIENT WAS IN A-FIB WITH A HEARTRATE OF 160. PATIENT IS AAOX4, RESTLESSNESS NOTED, DENIES PAIN. STATES SHE COULD NOT FIND HER SON AND STARTED GETTING ANXIETY, AND SHE HAD SMOKING TODAY, NOT TAKEN HER REGULAR MEDICATIONS FOR 4 DAYS. HX: COPD, HTN, ANXIETY. DENIES N/V/D; SKIN IS PINK/WARM/DRY; PATIENT DENIES PAIN; VSS; PATIENT POSITIONED FOR COMFORT; HOB ELEVATED; BEDRAILS UP X2; BED DOWN. ER MD MADE AWARE OF PT STATUS.
--- NOTE | 2018-07-05 17:01 | NUR ---
Patient being evaluated by physician at bedside.
[2018-07-05] MEDS ORDERED: ALBUTEROL 0.083% 2.5 MG/3 ML NEBU INH ONE (17:10)
[2018-07-05] MEDS ORDERED: IPRATROPIUM 0.02% 0.5 MG/2.5 ML NEBU INH ONE (17:10)
[2018-07-05] MEDS ORDERED: MIDAZOLAM 2 MG/2 ML VIAL IV ONE (17:10)
[2018-07-05] MEDS ORDERED: methylPREDNISolone SS 125 MG in WATER STERILE 2 ML IV ONE (17:10)
--- NOTE | 2018-07-05 17:35 | NUR ---
PATIENT WAS ON 2L/M OXYMIZER WHEN ENTERED ROOM. SPO2 100%. PATIENT HAS COPD AND DOES NOT USE OXYGEN AT HOME. LEFT PATIENT ON ROOM AIR, SPO2 98%. PATIENT CONFIRMED THAT HHN TX HELPED WITH SOB.
[2018-07-05 17:48] LABS: BASOPHILS % (AUTO) 0.1 % (0.0-2.0); EOSINOPHILS # (AUTO) 0.2 K/uL (0-0.4); EOSINOPHILS % (AUTO) 1.9 % (0.0-4.0); HEMATOCRIT 33.9 % (36-48); HEMOGLOBIN 11.3 g/dL (12.0-16.0); LYMPHOCYTES % (AUTO) 23.6 % (20.5-51.1); MEAN CORPUSCULAR HEMOGLOBIN 32 pg (27-31); MEAN CORPUSCULAR HGB CONC 34 g/dL (33-37); MEAN CORPUSCULAR VOLUME 96.4 fL (80-94); MONOCYTES # (AUTO) 0.7 K/uL (0.8-1.0); MONOCYTES % (AUTO) 8.3 % (1.7-9.3); NEUTROPHILS # (AUTO) 5.7 K/uL (1.8-7.7); NEUTROPHILS % (AUTO) 66.1 % (42.2-75.2); PLATELET COUNT (AUTO) 323 K/uL (140-450); RED BLOOD CELL COUNT(AUTO) 3.51 MIL/uL (4.20-5.40); RED CELL DISTRIBUTION WIDTH 13.3 % (11.6-13.7); WHITE BLOOD COUNT (AUTO) 8.6 K/uL (4.8-10.8)
--- NOTE | 2018-07-05 18:00 | NUR ---
PT IS RESTING IN BED, NO S/S OF DISTRESS, HR 158 STILL, ED MD MADE AWARE. PT IS GOING TO ADMIT TO HOSPITAL.
[2018-07-05 18:08] LABS: ANION GAP 16.2 (8-16); CARBON DIOXIDE 22.1 mmol/L (21-32); CHLORIDE 102 mmol/L (98-107); CREATININE 0.8 mg/dL (0.6-1.3); GLUCOSE 85 mg/dL (74-106); POTASSIUM 3.3 mmol/L (3.5-5.1); SODIUM SERUM 137 mmol/L (136-145); UREA NITROGEN, BLOOD 7 mg/dL (7-18)
[2018-07-05 18:15] LABS: ALBUMIN 3.1 g/dL (3.4-5.0); ASPARTATE AMINOTRANSFERASE 18 U/L (15-37); TOTAL BILIRUBIN 0.2 mg/dL (0.0-1.0)
[2018-07-05 18:17] LABS: PROTHROMBIN TIME 9.4 secs (10.8-13.4)
[2018-07-05] MEDS ORDERED: DILTIAZEM 125 MG in DEXTROSE 5% 100 ML IV ONE (18:40)
[2018-07-05] MEDS ORDERED: DILTIAZEM 25 MG/5 ML VIAL IVP ONE (18:40)
[2018-07-05] MEDS ORDERED: DILTIAZEM 125 MG/25 ML VIAL IV ONE (18:54)
--- NOTE | 2018-07-05 19:13 | NUR ---
report given to power and recovery shift engineer nurse for continue of care.
--- NOTE | 2018-07-05 19:20 | NUR ---
[place] [employer] AT BEDSIDE SPEAKING W/ PT, PT AGITATED.
--- NOTE | 2018-07-05 19:35 | NUR ---
PT AMBULATED TO BATHROOM, EVEN STEADY GAIT, URINE SPECIMEN PROVIDED.
--- NOTE | 2018-07-05 19:37 | NUR ---
PT REFUSES TO WEAR HOSPITAL GOWN, WANTS TO WEAR HER OWN PAJAMAS BECAUSE THEY ARE "WARM".
--- NOTE | 2018-07-05 20:00 | NUR ---
Patient will be admitted to care of DR MCMULLEN. Admited to ICU. Will go to room BED 5. Belongings list completed. Report to PEGGY ESTEBAN.
--- NOTE | 2018-07-05 20:08 | NUR ---
DR. ROBLES AT BEDSIDE TO SEE PT; WILL FOLLOW-UP WITH ANY NEW ORDERS. PT'S VICK AT BEDSIDE.
--- NOTE | 2018-07-05 20:10 | NUR ---
PT ARRIVED IN THE UNIT AT 1954 VIA RNEY. PT WAS ABLE TO WALK FROM THE GURNEY TO THE BED. PT WAS ANXIOUS AND WORRIED, BUT COOPERATIVE. PT KEEPS STATING THAT SHE WANTS TO GO HOME AND BE WITH HER SON. ABLE TO MAKE NEEDS KNOWN. DENIES PAIN. ABLE TO MAKE NEEDS KNOWN. VS STABLE AT THIS TIME. LUNG SOUNDS CLEAR. PT IN ROOM AIR. RESPIRATIONS EVEN AND UNLABORED. S1+S2 HEARD. AFIB ON MONITOR. RECEIVED PT ON DILTIAZEM DRIP RUNNING 10ML/HR. PT HAS RIGHT AND LEFT FOREARM 18G. PERIPHERAL IV ACCESS ARE PATENT, INTACT, AND ASYMPTOMATIC. PT'S BELONGINGS WAS TAKEN BY ANNETTA HICKMAN HOME. BED KEPT AT LOW POSSIBLE POSITION. HOB AT 30 DEGREES. ALL SAFETY PRECAUTIONS ARE IN PLACE.
[2018-07-05] MEDS ORDERED: guaiFENesin 20 MG/ML UDC PO PRN (20:25)
--- NOTE | 2018-07-05 22:14 | NUR ---
VS STABLE AT THIS TIME. AFIB ON MONITOR AT THIS TIME. PT STILL ON CARDIZEM DRIP. RESPIRATIONS ARE EVEN AND UNLABORED. PT DOES NOT APPEAR TO BE HAVING ANY DISCOMFORT AT THIS TIME.
[2018-07-05] MEDS: ALBUTEROL 0.083% 2.5 MG/3 ML NEBU INH SCH (22:36)
[2018-07-06] VITALS (31 sets, daily range): BP systolic 100–127; BP diastolic 57–95
[2018-07-06] MEDS: methylPREDNISolone SS 40 MG/ML VIAL IVP SCH ×4 (00:18→23:44)
[2018-07-06] MEDS: LORazepam 0.5 MG TAB PO PRN ×3 (01:13→15:55)
--- NOTE | 2018-07-06 01:40 | NUR ---
PT WAS BEING ANXIOUS AND WAS STATING THAT SHE NEEDS TO GO HOME. PT WAS GIVEN ATIVAN AND ALREADY CALMING DOWN.
--- NOTE | 2018-07-06 02:40 | NUR ---
PT IN BED AND APPEARS TO BE CALM. PT'S EYES ARE CLOSED. VS STABLE. STILL ON CARDIZEM DRIP. NO CHANGE IN CONDITION AT THIS TIME. WILL CONTINUE TO MONITOR PT.
[2018-07-06] MEDS: ALBUTEROL 0.083% 2.5 MG/3 ML NEBU INH SCH ×6 (03:14→22:50)
[2018-07-06 05:47] LABS: BASOPHILS % (AUTO) 0.2 % (0.0-2.0); HEMATOCRIT 33.5 % (36-48); HEMOGLOBIN 11.2 g/dL (12.0-16.0); LYMPHOCYTES # (AUTO) 0.4 K/uL (2.5-16.5); LYMPHOCYTES % (AUTO) 4.3 % (20.5-51.1); MEAN CORPUSCULAR HEMOGLOBIN 32 pg (27-31); MEAN CORPUSCULAR HGB CONC 34 g/dL (33-37); MEAN CORPUSCULAR VOLUME 95.8 fL (80-94); MONOCYTES % (AUTO) 0.6 % (1.7-9.3); NEUTROPHILS # (AUTO) 8.3 K/uL (1.8-7.7); NEUTROPHILS % (AUTO) 94.9 % (42.2-75.2); PLATELET COUNT (AUTO) 312 K/uL (140-450); RED CELL DISTRIBUTION WIDTH 13.1 % (11.6-13.7); WHITE BLOOD COUNT (AUTO) 8.7 K/uL (4.8-10.8)
--- NOTE | 2018-07-06 06:06 | NUR ---
DR. ROBLES INFORMED THAT PATIENT'S HR SINCE 399 WAS FROM 60-70, DR. ROBLES ORDERED TO STOP CARDIZEM DRIP NOW. OBTAINED REGULAR DIET ORDER ALSO.
[2018-07-06 06:54] LABS: ANION GAP 14.5 (8-16); CARBON DIOXIDE 24.9 mmol/L (21-32); CHLORIDE 102 mmol/L (98-107); CREATININE 0.8 mg/dL (0.6-1.3); GLUCOSE 171 mg/dL (74-106); POTASSIUM 4.4 mmol/L (3.5-5.1); SODIUM SERUM 137 mmol/L (136-145); UREA NITROGEN, BLOOD 8 mg/dL (7-18)
[2018-07-06 07:09] LABS: CHOL/HDL RATIO 2.1 (1-4.5)
--- NOTE | 2018-07-06 07:25 | NUR ---
OBTAINED REPORT FROM BROADCAST CHIEF ENGINEER RN AT BEDSIDE, PT IS AAOX4, ABLE TO FOLLOW COMMANDS AND MAKE NEEDS KNOWN. VSS, DENIES PAIN, CRYING, DEPRESSION AND ANXIETY NOTED, WILL MEDICATED. NO S/S OF DISTRESS, CLEAR LUNG SOUNDS JESSICA, ON RA, O2 SAT 99%. DENIES CHEST PAIN, A-FIB ON COLOR SPECIALIST, SOFT ABDOMEN WITH ACTIVE BOWEL SOUNDS, CONTINENT WITH B&B'S, ABLE TO USE BSC, ABLE TO MOVE ALL EXTREMITIES, SKIN IS WARM AND DRY TO TOUCH, NO OPEN WOUND, IV SITE TO RIGHT FOREARM 18 GA AND LEFT AC 18GA, PATENT AND SL. SCD'S ON BLE. EXPLAINED POC TO PT, PT VERBALIZED UNDERSTANDING, HOB ELEVATED TO 30 DEGREES, SAFETY MEASURES IN PLACE, CALL LIGHT WITHIN REACH, WILL CONTINUE TO MONITOR.
--- NOTE | 2018-07-06 08:10 | NUR ---
PT'S GRANDDAUGHTER AT BEDSIDE, PT IS MORE RELAXING AT THIS TIME.
[2018-07-06] MEDS ORDERED: DILTIAZEM 30 MG TAB PO SCH ×2 (09:00→13:00)
--- NOTE | 2018-07-06 09:55 | NUR ---
DR. CHAWLA CAME IN TO EVALUATE PT AT BEDSIDE, WILL FOLLOW UP WITH NEW ORDERS.
[2018-07-06] MEDS ORDERED: MULTIVITAMIN-12 10 ML, THIAMINE 100 MG, FOLIC ACID 1 MG, MAGNESIUM SULFATE 50% 2,000 MG... IV SCH ×5 (10:30)
--- NOTE | 2018-07-06 12:00 | NUR ---
PT IS RESTING IN BED, NO S/S OF DISTRESS, VSS, DENIES PAIN.
--- NOTE | 2018-07-06 16:00 | NUR ---
PT IS RESTING IN BED, NO S/S OF DISTRESS, VSS, DENIES PAIN, ABLE TO SELF CHANGE POSITIONS.
--- NOTE | 2018-07-06 16:30 | NUR ---
TRANSFERRED PT TO TELEMETRY ROOM 124B VIA WHEELCHAIR, ALL BELONGS GOES WITH PT, PT'S GRANDDAUGHTER AT BEDSIDE, NO S/S OF DISTRESS, VSS, DENIES PAIN. PLACED PT TO COMFORT POSITION, CALL LIGHT WITHIN REACH, WILL CONTINUE TO MONITOR.
--- NOTE | 2018-07-06 19:15 | NUR ---
REPORT GIVEN TO CHECKMAN RN AT BEDSIDE FOR CONTINUE OF CARE, PT IS IN STABLE CONDITION AT THIS TIME.
--- NOTE | 2018-07-06 19:20 | NUR ---
RECEIVED PATIENT LYING ON BED WITH IV INFUSING WELL. EXPLAINED TO PATIENT THE PLAN OF CARE AND VERBALIZED UNDERSTANDING. FALL PRECAUTION APPLIED. WILL CONTINUE TO MONITOR.
[2018-07-06] MEDS: APIXABAN 2.5 MG TAB PO SCH (20:22)
[2018-07-06] MEDS: DILTIAZEM 30 MG TAB PO SCH (20:22)
--- NOTE | 2018-07-06 21:00 | NUR ---
V/S TAKEN AND RECORDED. SCHEDULE MEDICATION AND TOLERATED WELL. NO S/S OF DISTRESS NOTED AT THIS TIME. ALL NEEDS ATTENDED.
[2018-07-07] VITALS: BP 119/62
--- NOTE | 2018-07-07 | NUR ---
V/S TAKEN AND RECORDED. PLACED PATIENT IN COMFORTABLE POSITION. NO S/S OF DISTRESS NOTED. ALL NEEDS ATTENDED. CALL LIGHT WITHIN REACH. WILL CONTINUE TO MONITOR.
--- NOTE | 2018-07-07 02:00 | NUR ---
SEEN PATIENT ASLEEP IN COMFORTABLE POSITION WITH BLANKET ON TOP. NO S/S OF DISTRESS. DENIES PAIN. WILL CONTINUE TO MONITOR.
[2018-07-07] MEDS: ALBUTEROL 0.083% 2.5 MG/3 ML NEBU INH SCH ×3 (03:00→11:53)
--- NOTE | 2018-07-07 03:18 | NUR ---
PT REFUSED HHN TX. PT SAID SHE WANTS TO SLEEP. NO SOB OR DISTRESS NOTED. WILL CONTINUE TO MONITOR.
[2018-07-07 04:00] VITALS: BP 129/75
--- NOTE | 2018-07-07 04:00 | NUR ---
V/S TAKEN AND RECORDED. DENIES PAIN. NO S/S OF DISTRESS NOTED. AM CARE DONE. ALL NEEDS ATTENDED. CALL LIGHT WITHIN REACH.
[2018-07-07] MEDS: DILTIAZEM 30 MG TAB PO SCH ×3 (04:50→21:14)
[2018-07-07 06:25] LABS: BASOPHILS # (AUTO) 0.1 K/uL (0.00-0.22); BASOPHILS % (AUTO) 0.5 % (0.0-2.0); EOSINOPHILS # (AUTO) 0.2 K/uL (0-0.4); EOSINOPHILS % (AUTO) 1.8 % (0.0-4.0); HEMOGLOBIN 10.2 g/dL (12.0-16.0); LYMPHOCYTES # (AUTO) 0.3 K/uL (2.5-16.5); LYMPHOCYTES % (AUTO) 2.9 % (20.5-51.1); MEAN CORPUSCULAR HEMOGLOBIN 32 pg (27-31); MEAN CORPUSCULAR HGB CONC 33 g/dL (33-37); MEAN CORPUSCULAR VOLUME 96.3 fL (80-94); MONOCYTES # (AUTO) 0.2 K/uL (0.8-1.0); MONOCYTES % (AUTO) 1.9 % (1.7-9.3); NEUTROPHILS # (AUTO) 10.2 K/uL (1.8-7.7); NEUTROPHILS % (AUTO) 92.9 % (42.2-75.2); PLATELET COUNT (AUTO) 285 K/uL (140-450); RED BLOOD CELL COUNT(AUTO) 3.22 MIL/uL (4.20-5.40)
--- NOTE | 2018-07-07 07:22 | NUR ---
GAVE REPORT TO AM SHIFT RN AT BEDSIDE FOR CONTINUITY OF CARE. PATIENT IN STABLE CONDITION.
--- NOTE | 2018-07-07 07:50 | NUR ---
RECEIVED PATIENT FROM FLUSH TESTER RN BY HER BEDSIDE. PATIENT IS ALERT AND ORIENTED. SHE COMPLAINS OF SHORTNESS OF BREATH; PUT HER ON O2 VIA NC AT RATE OF 2L/MIN. HER SAT O2 IS 96%. VSS. PATIENT DENIES ANY PAIN AT THIS TIME. PATIENT STATED THAT SHE FEELS ANXIOUS AND WOULD LIKE SOMETHING SO "I CAN GO TO SLEEP". WILL MEDICATE PER ORDER. HER BED IS AT THE LOWEST POSITION AND CALL LIGHT WITHIN REACH.
[2018-07-07 08:10] VITALS: BP 116/64
--- NOTE | 2018-07-07 08:20 | NUR ---
PATIENT HAS BEEN SCREENED AND CATEGORIZED HIGH NUTRITION RISK. PATIENT WILL BE SEEN WITHIN 1-2 DAYS OF ADMISSION. 07/07/[address]
[2018-07-07] MEDS: DIGOXIN 0.125 MG TAB PO SCH (08:51)
[2018-07-07] MEDS: APIXABAN 2.5 MG TAB PO SCH ×2 (08:51→21:15)
[2018-07-07] MEDS: methylPREDNISolone SS 40 MG/ML VIAL IVP SCH ×2 (08:51→17:03)
[2018-07-07] MEDS: LORazepam 0.5 MG TAB PO PRN ×2 (08:52→17:04)
--- NOTE | 2018-07-07 10:12 | NUR ---
PATIENT IS SLEEPING ON HER BED AND DOES NOT APPEAR TO BE IN ANY DISTRESS. WILL CONTINUE TO MONITOR HER.
[2018-07-07 11:30] VITALS: BP 118/58
--- NOTE | 2018-07-07 11:50 | NUR ---
CARMELLA, BOARD CERTIFIED MUSIC THERAPIST, BROUGHT UP THE FACT THAT FROM THE H&P THAT THE PATIENT IS HAVING TROUBLE GETTING HER MEDCATIONS DUE TO COST. I CALLED MELVIN AT [facility], AND SHE SAID THEY RECOMMEND THAT THE PATIENT GO TO [facility] AND ASK FOR THE GENERIC, WHICH IS LESS EXPENSIVE. OR ELSE SPEAK WITH HER PHYSICIAN.
--- NOTE | 2018-07-07 12:15 | NUR ---
PATIENT IS COMFORTABLY LYING ON THE BED WITHOUT ANY DISTRESS OR PAIN AT THIS TIME. PATIENT IS ON 2L/MIN O2 VIA NC. THE BED IS AT THE LOWEST POSITION WITH THE CALL LIGHT WITHIN REACH.
--- NOTE | 2018-07-07 13:05 | NUR ---
PATIENT WAS SEEN BY DR. ROBLES
--- NOTE | 2018-07-07 14:29 | NUR ---
PATIENT'S GRANDDAUGHTER ANNETTA AND HER ARE BY HER SIDE. WILL CONTINUE TO MONITOR HER
--- NOTE | 2018-07-07 14:34 | NUR ---
07/07/18 RD INITIAL ASSESSMENT COMPLETED PLEASE REFER TO NUTRITION ASSESSMENT UNDER CARE ACTIVITY FOR ESTIMATED NUTRITIONAL NEEDS. 1. CONTINUE REGULAR DIET TOLERATED 2. RECOMMEND MULTIVITAMIN QD 3. RECOMMEND HEALTH SHAKE TID 4. ENCOURAGE PO INTAKE 5. RD TO FOLLOW-UP 2-3 DAYS, HIGH RISK SOLO CROWDER, RD
[2018-07-07] MEDS ORDERED: IPRATROPIUM 0.02% 0.5 MG/2.5 ML NEBU INH PRN ×2 (14:45)
--- NOTE | 2018-07-07 14:47 | NUR ---
Machine Rough Rounder Note: I called patient's son Den Bradley , no answer, left message to call me back.
--- NOTE | 2018-07-07 15:21 | NUR ---
GRANDDAUGHTER'S CELL [phone]. VISITORS LEFT. PATIENT IS DOING WELL. BED POSITION AT THE LOWEST POSITION AND CALL LIGHT WITHIN REACH.
[2018-07-07 16:05] VITALS: BP 137/69
--- NOTE | 2018-07-07 16:55 | NUR ---
PATIENT IS COMFORTABLY LYING ON THE BED. AT THIS TIME, HER NC WAS NOT ON HER NARES. SHE SAID THAT "IT SEEMS LIKE IT'S NOT WORKING". V/S WERE CHECKED AND THE SAT O2 WAS 91%. RECHECKED THE NC TO MAKE SURE THAT IT IS IN WORKING ORDER AND PUT HER BACK ON 2L/MIN VIA NC. WILL RECHECK HER SAT O2.
--- NOTE | 2018-07-07 17:10 | NUR ---
RECHECKED HER SAT O2. IT INCREASED FROM 91% TO 96%. WILL KEEP MONITORING HER VITAL SIGNS. BED AT THE LOWEST POSITION AND CALL LIGHT WITHIN REACH.
[2018-07-07] MEDS: IPRATROPIUM 0.02% 0.5 MG/2.5 ML NEBU INH SCH (19:08)
--- NOTE | 2018-07-07 19:39 | NUR ---
ENDORSED PATIENT TO INFORMATION DEVELOPER RN BY THE BEDSIDE. PATIENT IS SLEEPING DOES NOT APPEAR TO BE IN ANY DISTRESS OR PAIN AT THIS TIME. BED AT THE LOWEST POSITION AND CALL LIGHT WITHIN REACH.
--- NOTE | 2018-07-07 19:40 | NUR ---
RECEIVED PATIENT FROM AM SHIFT RN BY HER BEDSIDE. PATIENT SLEEPING. NO RESPIRATORY DISTRESS NOTED. AT 02 2LPM ROUTINE.PATIENT DENIES ANY PAIN AT THIS TIME. HER BED IS AT THE LOWEST POSITION AND CALL LIGHT WITHIN REACH.
[2018-07-07 20:00] VITALS: BP 136/62
[2018-07-08] VITALS: BP 138/65
--- NOTE | 2018-07-08 02:14 | NUR ---
PT REFUSED SOLUMEDROL EARLIER AT 0000. PT SLEEPY ADMISTERED NOW
[2018-07-08 04:00] VITALS: BP 135/62
[2018-07-08] MEDS: DILTIAZEM 30 MG TAB PO SCH ×2 (05:54→13:14)
[2018-07-08] MEDS: IPRATROPIUM 0.02% 0.5 MG/2.5 ML NEBU INH SCH ×2 (06:21→13:02)
--- NOTE | 2018-07-08 07:05 | NUR ---
RECEIVED BEDSIDE REPORT FROM WOOL FLEECE SORTER NURSE. PATIENT IS AWAKE, ALERT AND ORIENTED X4. NO SIGNS OF DISTRESS. ON ROOM AIR. SKIN IS INTACT. IV ON R FOREARM 18 G, SL, IV ON L AC 18 G SL BOTH CLEAN, DRY AND INTACT. TELE MONITOR IN PLACE. PATIENT HAS WEAKNESS FALL RISK PROTOCOL IN PLACE. L ARM RESTRICTIONS D/T HX OF L BREAST CANCER. PATIENT IS CONTINENT. BED IN LOW POSITION, CALL LIGHT WITHIN REACH. WILL CONTINUE TO MONITOR THE PATIENT.
[2018-07-08 07:28] LABS: HEMATOCRIT 32.6 % (36-48); HEMOGLOBIN 10.8 g/dL (12.0-16.0); MEAN CORPUSCULAR HEMOGLOBIN 32 pg (27-31); MEAN CORPUSCULAR HGB CONC 33 g/dL (33-37); MEAN CORPUSCULAR VOLUME 96.3 fL (80-94); PLATELET COUNT (AUTO) 276 K/uL (140-450); RED BLOOD CELL COUNT(AUTO) 3.38 MIL/uL (4.20-5.40); RED CELL DISTRIBUTION WIDTH 13.4 % (11.6-13.7); WHITE BLOOD COUNT (AUTO) 10.7 K/uL (4.8-10.8)
[2018-07-08 08:00] VITALS: BP 122/66
[2018-07-08 08:03] LABS: ANION GAP 9.9 (8-16); CARBON DIOXIDE 27.1 mmol/L (21-32); CHLORIDE 104 mmol/L (98-107); CREATININE 0.8 mg/dL (0.6-1.3); GLUCOSE 141 mg/dL (74-106); SODIUM SERUM 137 mmol/L (136-145); UREA NITROGEN, BLOOD 20 mg/dL (7-18)
[2018-07-08 08:38] LABS: BASOPHILS % (MANUAL) 0 % (0-2); EOSINOPHILS % (MANUAL) 0 % (0-4); LYMPHOCYTES % (MANUAL) 5 % (20-46); MONOCYTES % (MANUAL) 2 % (5-12)
[2018-07-08] MEDS: DIGOXIN 0.125 MG TAB PO SCH (09:20)
[2018-07-08] MEDS: methylPREDNISolone SS 40 MG/ML VIAL IVP SCH ×3 (09:21→16:44)
[2018-07-08] MEDS: APIXABAN 2.5 MG TAB PO SCH (09:21)
[2018-07-08] MEDS: LORazepam 0.5 MG TAB PO PRN ×2 (09:31→16:47)
--- NOTE | 2018-07-08 09:33 | NUR ---
ADMINISTERED MEDS. PATIENT TOLERATED WELL. PATIENT IS CRYING AND AGITATED. SHE ASKED WHY SHE HAD A RESTRICTION BAND ON HER L ARM AND I TOLD HER FOR THE HX OF BREAST CANCER. PATIENT STARTED CRYING AND SAID NO ONE TOLD HER ABOUT IT. I TOLD HER IT WAS ONLY FOR HER HX OF BREAST CANCER. PATIENT HAS HX OF DEPRESSION. CONSOLED PATIENT AND MADE SURE SHE WAS BETTER. GAVE ATIVAN. WILL CONTINUE TO MONITOR THE PATIENT
--- NOTE | 2018-07-08 10:30 | NUR ---
BINH, SON, CALLED. HE STATED WHEN DISCHARGED CALL HIM FOR DC INSTRUCTIONS. HE WANTED TO BE FIRST ONE CALLED IN REGARDS TO PATIENT. ASKED PATIENT IF SHE WANTS US TO CALL BINH OR [facility] FIRST WHEN DC'D. PATIENT STATED SHE WANTS US TO CONTACT BINH BECAUSE [facility] LIVES FAR AND IS UNABLE TO HELP WITH DISCHARGE.
[2018-07-08 12:00] VITALS: BP 146/75
--- NOTE | 2018-07-08 12:00 | NUR ---
GRANDDAUGHTER AT BEDSIDE. WILL CONTINUE TO MONITOR THE PATIENT.
--- NOTE | 2018-07-08 13:16 | NUR ---
ADMINISTERED MEDS. PATIENT TOLERATED WELL. WILL CONTINUE TO MONITOR THE PATIENT. GRANDDAUGHTER AT BEDSIDE
--- NOTE | 2018-07-08 13:22 | NUR ---
DR ROBLES SAID IF DR CHAWLA CLEARS PATIENT AND PHYSICAL THERAPY THEN PATIENT MAY GO HOME. ORDERED PT EVAL. CALLED DR CHAWLA SHE SAID SHE WILL BE HERE 4 OR 4:30 AND SEE THE PATIENT BECAUSE SHE IS CURRENTLY IN [place]IP[place]. WILL TELL DR ROBLES
--- NOTE | 2018-07-08 14:39 | NUR ---
DR ROBLES SAID TO ASK DR CHAWLA IF IT IS OK TO START PATIENT ON XARALTO. WILL TELL DR CHAWLA WHEN PATIENT ARRIVES. ASKED GRANDDAUGHTER ANNETTA IF SHE HAS HOME MEDS BECAUSE DR ROBLES WANTS TO KNOW HER CURRENT MEDS AND IT IS SPIRIVA, ALBUTEROL, AND ADVAIR. SHE SAID SHE WILL CALL REBECCA, PATIENTS SON, AND MAKE SURE THOSE ARE THE ONLY HOME MEDS
[2018-07-08 16:00] VITALS: BP 136/80
--- NOTE | 2018-07-08 16:49 | NUR ---
PATIENT FEELS ANXIETY. ADMINISTERED PRN ANXIETY MEDS AND ORDERED SOLUMEDROL. PATIENT TOLERATED WELL. WILL CONTINUE TO MONITOR THE PATIENT. FAMILY AT BEDSIDE
--- NOTE | 2018-07-08 17:00 | NUR ---
DR CHAWLA IN TO SEE PATIENT. SHE CLEARLY EDUCATED THE PATIENT AND GRANDDAUGHTER, ANNETTA, ON PATIENTS DRINKING HABITS. SHE STATED IF PATIENT PROMISES TO STOP DRINKING SHE WILL PRESCRIBE XARALTO. BUT IF PATIENT DOES NOT STOP DRINKING, SHE CANNOT PRESCRIBE XARELTO. DRINKING WITH XARELTO IS A HIGH RISK OF BLEEDING. SHE EDUCATED THE PATIENT THAT DRINKING ALCOHOL WHEN ON XARALTO SHE CAN RISK GETTING A GI BLEED OR SHE CAN FALL AND SUFFER FROM A BRAIN HEMORRHAGE. SHE EDUCATED THAT MAY HAPPEN. SHE TOLD THE PATIENT THAT IF SHE IS NOT GOING TO STOP DRINKING SHE SHOULD JUST BE HONEST AND SAY SHE WILL NOT. PATIENT SAID SHE IS GOING TO QUIT DRINKING BUT NOT GOING TO STOP SMOKING. DR CHAWLA ADVISED HER TO STOP SMOKING TOO BUT PATIENT STATES SHE CANNOT STOP. GRANDDAUGHTER VERBALIZED SHE WOULD EMPTY ALL THE ALCOHOL AT PATIENTS HOUSE. AND SHE WILL GET INTO CONTACT WITH DR CHAWLA IF PATIENT STARTS TO DRINK AGAIN. DR CHAWLA SAID CALL ME RIGHT AWAY IF SHE DRINKS AND STOP THE XARALTO IMMEDIATELY. DR PETERS INFORMATION GIVEN TO THE PATIENT AND GRANDDAUGHTER
[2018-07-08] MEDS ORDERED: DIGO0.122 PO (18:07)
[2018-07-08] MEDS ORDERED: DILT-47 PO (18:07)
[2018-07-08] MEDS ORDERED: RIVA20TA4 PO (18:08)
--- NOTE | 2018-07-08 18:25 | NUR ---
EDUCATED PATIENT AND GRANDDAUGHTER, ANNETTA, TO STOP DRINKING D/T HIGH RISK WHEN ON XARALTO. EDUCATED ON MEDS, EDUCATED ON ABN S/SX AND WHEN TO GO TO THE ER. EDUCATED ON FOLLOW UP W DR ROBLES. PATIENT VERBALIZED UNDERSTANDING. GAVE DR PETERS NUMBER IN CASE PATIENT DRINKS WHEN ON XARALTO. ALTHOUGH PATIENT STATES SHE WILL QUIT DRINKING. GAVE A DR NOTE FOR HER WORK. GAVE PRESCRIPTIONS. PATIENT HAD PNA VACCINE 2016 AND REFUSED FLU VACCINE. PATIENT SIGNED ALL PAPERWORK AND VERBALIZED UNDERSTANDING. TELE MONITOR REMOVED. IV REMOVED, TIP INTACT. ID BANDS REMOVED. PATIENT LEFT IN STABLE CONDITION IN WHEELCHAIR.
== END 2018-07-08 18:25 | disposition home or self-care (01) | DRG 191 ==
LOC: MED 16:27 → MIC 19:32 → MTU 07-06 16:56
PROVIDERS: ADMIT Internal Medicine Geriatric Medicine; ATTEND Internal Medicine Geriatric Medicine
DX: J44.1 Chronic obstructive pulmonary disease with (acute) exacerbation (principal); E44.1 Mild protein-calorie malnutrition; Z68.1 Body mass index [BMI] 19.9 or less, adult; I48.2 Chronic atrial fibrillation; F41.9 Anxiety disorder, unspecified; I34.0 Nonrheumatic mitral (valve) insufficiency; F32.9 Major depressive disorder, single episode, unspecified; F17.210 Nicotine dependence, cigarettes, uncomplicated; I07.1 Rheumatic tricuspid insufficiency; Z85.3 Personal history of malignant neoplasm of breast; Z82.5 Family history of asthma and other chronic lower respiratory diseases; Z91.041 Radiographic dye allergy status; Z79.899 Other long term (current) drug therapy
CPT/HCPCS: 36415; 71045; 80048; 80053; 83036; 83735; 83880; 84134; 84484; 85025; 85610; 85730; 87081; 93005; 94640; 96365; 96375; 96376; 99291; A9153; J2250; J2920; J2930; J3411; J3475; J3490; J7060; J7613; J7644; Q0092

== ENCOUNTER 2018-07-10 15:56 | Inpatient (IN) | payer OTHER ==
[~2018-07-10] VITALS: Ht 172.7 cm; Wt 68.9 kg
[~2018-07-10 15:56] MED LIST changes: +DIGO0.122 PO; +DILT-47 PO; -LEVO750T2 PO; -PRED10TA5 PO; +RIVA20TA4 PO
[2018-07-10 15:57] VITALS: BP 119/74
[2018-07-10] MEDS ORDERED: ONDANSETRON 4 MG/2 ML VIAL IVP ONE (16:00)
[2018-07-10] MEDS ORDERED: ALBUTEROL SULFATE/IPRATROPIU 3 ML SOL IH ONE (16:00)
--- NOTE | 2018-07-10 16:00 | NUR ---
PT BIBA TO BED 7
--- NOTE | 2018-07-10 16:30 | NUR ---
73 YO F BIB [facility] FROM HOME W/ C/O GENERALIZED WEAKNESS X 3 DAYS. PT REPORTS THAT SHE HAS NOT BEEN ABLE TO EAT/DRINK IN 3 DAYS, JUST PROTEIN SHAKES. DENIES N/V/D/FEVER/CHILLS. PER EMS, EKG IN THE FIELD NSR. PT NORMALLY AMBULATORY W/ STEADY GAIT BUT FEELS VERY FATIGUED AT THIS TIME. PT AAOX4, GCS 15. RR EVEN AND UNLABORED, LUNGS BL CLEAR. ABD SOFT, NON-TENDER. ER MD NOTIFIED. PT NEEDS MET, SAFETY PRECAUTIONS IN PLACE. HX BREAST CANCER REMISSION, COPD, A-FIB RX LOSARTAN, DIGOXIN, PREDNISONE, DILTIAZEM, ALBUTEROL
[2018-07-10] MEDS: NACL 0.9% 1,000 ML IV SCH ×2 (16:44→17:47)
--- NOTE | 2018-07-10 16:45 | NUR ---
ATTEMTPED TO DRAW LABS X 3 WITHOUT SUCCESS, EDMD AWARE
--- NOTE | 2018-07-10 17:11 | NUR ---
PT REFUSING STREIGHT CATH AT THIS TIME
[2018-07-10 17:21] LABS: ANION GAP 10.3 (8-16); BASOPHILS % (AUTO) 0.1 % (0.0-2.0); CARBON DIOXIDE 30.1 mmol/L (21-32); CHLORIDE 98 mmol/L (98-107); GLUCOSE 127 mg/dL (74-106); HEMATOCRIT 39.9 % (36-48); LYMPHOCYTES # (AUTO) 0.3 K/uL (2.5-16.5); LYMPHOCYTES % (AUTO) 1.1 % (20.5-51.1); MEAN CORPUSCULAR HEMOGLOBIN 31 pg (27-31); MEAN CORPUSCULAR HGB CONC 33 g/dL (33-37); MONOCYTES # (AUTO) 0.2 K/uL (0.8-1.0); MONOCYTES % (AUTO) 0.6 % (1.7-9.3); NEUTROPHILS # (AUTO) 25.7 K/uL (1.8-7.7); NEUTROPHILS % (AUTO) 98.2 % (42.2-75.2); PLATELET COUNT (AUTO) 292 K/uL (140-450); POTASSIUM 3.4 mmol/L (3.5-5.1); RED BLOOD CELL COUNT(AUTO) 4.16 MIL/uL (4.20-5.40); RED CELL DISTRIBUTION WIDTH 13.2 % (11.6-13.7); SODIUM SERUM 135 mmol/L (136-145); UREA NITROGEN, BLOOD 23 mg/dL (7-18); WHITE BLOOD COUNT (AUTO) 26.2 K/uL (4.8-10.8)
[2018-07-10 17:27] LABS: ALBUMIN 3.4 g/dL (3.4-5.0); ASPARTATE AMINOTRANSFERASE 25 U/L (15-37); TOTAL BILIRUBIN 0.6 mg/dL (0.0-1.0)
[2018-07-10] MEDS ORDERED: PIPERACILLIN/TAZOBACTAM 3.375 GM in DEXTROSE 5% 50 ML IV ONE (17:35)
[2018-07-10] MEDS ORDERED: VANCOMYCIN 1,000 MG in DEXTROSE 5% 250 ML IV ONE (17:35)
[2018-07-10] MEDS ORDERED: NACL 0.9% 1,500 ML IV ONE (17:35)
[2018-07-10] MEDS ORDERED: VANCOMYCIN 1,000 MG VIAL ONE (18:05)
--- NOTE | 2018-07-10 18:44 | NUR ---
SON BINH CALL WHEN INSURANCE APPROVES AND PT GETS ADMITTED
[2018-07-10 19:08] VITALS: BP 103/68
--- NOTE | 2018-07-10 19:08 | NUR ---
PT BROUGHT UP TO [facility] UNIT VIA GURNEY ESCORTED BY DELIO WOODS DAYSHIFT NURSE AND RJ WOODS EAR MACHINE OPERATOR NURSE. RECEIVED REPORT FROM DELIO WOODS AT BEDSIDE FOR CONTINUITY OF CARE. PT ABLE TO AMBULATE INDEPENDENTLY TO BED A IN ROOM 120. PT PUT ON 2 LITERS VIA N/C AND HAD VANCOMYCIN RUNNING AT 165. PT DENIES PAIN AT THIS TIME.
--- NOTE | 2018-07-10 19:11 | NUR ---
Patient will be admitted to care of DR. ROBLES. Admited to [facility]. Will go to room 120A. Belongings list completed. Report to TRISH WOODS.
--- NOTE | 2018-07-10 19:30 | NUR ---
PT IN LOW BED WITH HOB UP TO 35%. V/S FOLLOWS T 98.2 P 65 R 20 B/P 103/68 02 96% WITH 2L VIA N/C. PT HAS 20G ON R FA, INTACT AND FLUSHED PT. PT CONTINUE TO RUN VANCO AT 165 WHICH WAS STARTED IN ER. PT HAS DIMINISHED LUNG SOUND AND RHONCHI NOTED ON BASE OF RIGHT SIDE LUNG. PT HAS HYPO ACTIVE BOWEL SOUNDS, SHE SAID HER LAST BM WAS [address] ROBLES AT BEDSIDE EXAMINING PT. ADMISSION ORDERS NOTED.
[2018-07-10 19:34] LABS: APPEARANCE,URINE CLEAR (CLEAR); BILIRUBIN,URINE NEGATIVE (NEGATIVE); BLOOD, URINE NEGATIVE (NEGATIVE); COLOR,URINE YELLOW (YELLOW); LEUKOCYTE ESTERASE ,URINE 2+ (NEGATIVE); NITRITE, URINE NEGATIVE (NEGATIVE); PH,URINE 6.5 (5.0-9.0); UGLUCOSE NEGATIVE (NEGATIVE)
[2018-07-10 19:45] LABS: RBC,URINE 0-5 (RARE) /HPF (0-5)
[2018-07-10 19:46] LABS: WBC,URINE 80-100 /HPF (0-5)
[2018-07-10] MEDS ORDERED: PIPERACILLIN/TAZOBACTAM 3.375 GM VIAL IV ONE (20:56)
[2018-07-10] MEDS: PIPER/TAZO 3.375GM/D5W PREMIX 50 ML IV SCH (21:00)
[2018-07-10] MEDS ORDERED: SALMETEROL IH SCH (21:00)
[2018-07-10] MEDS ORDERED: FLUTICASONE IH SCH (21:00)
--- NOTE | 2018-07-10 21:00 | NUR ---
CLEMENCIA COMPLETED AND ZOSYN ORDERED BY DR. ROBLES.
--- NOTE | 2018-07-10 21:20 | NUR ---
ZOSYN RUNNING WITH NO ADVERSE EFFECTS OF ABT NOTED. PT SLEEPING, BUT AROUSABLE TO NAME, SHE HAS NO C/O VOICED AND DENIES PAIN.
--- NOTE | 2018-07-10 22:30 | NUR ---
PT SON BINH CALLED, SON UPDATED ON MOTHERS CONDITION AND PT ABLE TO SPEAK WITH SON.
[2018-07-10] MEDS: ALBUTEROL SULFATE/IPRATROPIU 3 ML SOL IH SCH (23:04)
--- NOTE | 2018-07-10 23:09 | NUR ---
PT RECEIVING NEB TX ORDERED AT BEDSIDE, PT HAS NO S/S OF PAIN OR DISTRESS NOTED.
--- NOTE | 2018-07-11 01:11 | NUR ---
PT IN BED RESTING BUT AROUSABLE TO NAME. NO C/O VOICED V/S FOLLOWS T 98.5 P 75 R 20 B/P 115/70 02 98% WITH 2 LITERS VIA N/C. O2 TURNED DOWN TO 1.5 LITERS DUE TO PT STATING AT 98%. PT HAS HX OF COPD . NO S/S OF SOB. BED LOW SIDE RAILS UP AND CALL [place] IN REACH.
[2018-07-11] MEDS: ALBUTEROL SULFATE/IPRATROPIU 3 ML SOL IH SCH ×6 (03:06→23:14)
[2018-07-11 04:00] VITALS: BP 124/74
[2018-07-11] MEDS ORDERED: PIPERACILLIN/TAZOBACTAM 3.375 GM VIAL IV ONE (04:56)
[2018-07-11] MEDS: PIPER/TAZO 3.375GM/D5W PREMIX 50 ML IV SCH ×3 (05:00→22:46)
--- NOTE | 2018-07-11 06:12 | NUR ---
DR. ROBLES PAGED BECAUSE PT IS MISSING A DIET ORDER. AWAITING RETURN CALL.
--- NOTE | 2018-07-11 06:20 | NUR ---
PICKED UP BY W/C BY PETRA FROM RADIOLOGY TO DO A CT OF THE HEAD.
--- NOTE | 2018-07-11 06:42 | NUR ---
PT RETUNED TO ROOM FROM CT OF THE HEAD.
[2018-07-11 07:12] LABS: EOSINOPHILS % (AUTO) 0.1 % (0.0-4.0); HEMATOCRIT 32.2 % (36-48); HEMOGLOBIN 10.7 g/dL (12.0-16.0); LYMPHOCYTES # (AUTO) 0.9 K/uL (2.5-16.5); MEAN CORPUSCULAR HEMOGLOBIN 32 pg (27-31); MEAN CORPUSCULAR HGB CONC 33 g/dL (33-37); MONOCYTES # (AUTO) 0.9 K/uL (0.8-1.0); MONOCYTES % (AUTO) 6.6 % (1.7-9.3); NEUTROPHILS # (AUTO) 11.3 K/uL (1.8-7.7); NEUTROPHILS % (AUTO) 86.3 % (42.2-75.2); PLATELET COUNT (AUTO) 252 K/uL (140-450); RED BLOOD CELL COUNT(AUTO) 3.32 MIL/uL (4.20-5.40); WHITE BLOOD COUNT (AUTO) 13.1 K/uL (4.8-10.8)
[2018-07-11 07:21] LABS: ANION GAP 11.4 (8-16); CARBON DIOXIDE 28.8 mmol/L (21-32); CHLORIDE 104 mmol/L (98-107); CREATININE 0.8 mg/dL (0.6-1.3); GLUCOSE 99 mg/dL (74-106); POTASSIUM 3.2 mmol/L (3.5-5.1); SODIUM SERUM 141 mmol/L (136-145); UREA NITROGEN, BLOOD 16 mg/dL (7-18)
--- NOTE | 2018-07-11 07:41 | NUR ---
GAVE REPORT TO MARIA DEL CARMEN RN AT BEDSIDE FOR CONTINUITY OF CARE. PT IN STABLE CONDITION.
--- NOTE | 2018-07-11 07:42 | NUR ---
RECEIVED BEDSIDE REPORT FROM PM SHIFT NURSE TRISH. PT LYING IN BED, AWAKE, VERBALLY RESPONSIVE. NO C/O PAIN, RESPIRATIONS EVEN & UNLABORED ON O2 @ 2LPM VIA N/C. ENCOURAGED PT TO CALL STAFF FOR ASSISTANCE PRN. VERBALIZED UNDERSTANDING. CALL LIGHT WITHIN REACH & ABLE TO RETURN DEMONSTRATE PROPER USE OF CALL BUTTON.
[2018-07-11 08:00] VITALS: BP 140/77
[2018-07-11] MEDS: POTASSIUM CHL 20 MEQ/D5-1/2NS 1,000 ML IV SCH ×2 (08:22→20:20)
[2018-07-11] MEDS: THIAMINE 100 MG TAB PO SCH (08:22)
[2018-07-11] MEDS: predniSONE 20 MG TAB PO SCH (08:22)
[2018-07-11] MEDS: FOLIC ACID 1 MG TAB PO SCH (08:22)
[2018-07-11] MEDS: DIGOXIN 0.125 MG TAB PO SCH (08:22)
[2018-07-11] MEDS: DILTIAZEM 120 MG CAPER PO SCH (08:22)
--- NOTE | 2018-07-11 09:15 | NUR ---
PT SITTING UP AT EDGE OF BED, EATING BREAKFAST. NO C/O PAIN. RESPIRATIONS EVEN & UNLABORED ON O2 @ 2LPM VIA N/C. CALL LIGHT WITHIN REACH. RIGHT FOREARM IV INTACT & ASYMPTOMATIC WITH ONGOING IVF.
--- NOTE | 2018-07-11 11:30 | NUR ---
PT SITTING IN BED, SON AT BEDSIDE. PT INTERACTING APPROPRIATELY. NO C/O PAIN OR DISCOMFORT. RESPIRATIONS EVEN & UNLABORED ON O2 @ 2LPM NC. CALL LIGHT WITHIN REACH.
[2018-07-11 12:00] VITALS: BP 114/57
--- NOTE | 2018-07-11 13:15 | NUR ---
PT SITTING UP IN BED, RESPIRATIONS EVEN & UNLABORED, ON O2 @ 2LPM VIA N/C. NO C/O PAIN OR DISCOMFORT. SON AT BEDSIDE TALKING WITH PT. CALL LIGHT WITHIN REACH.
--- NOTE | 2018-07-11 14:50 | NUR ---
SPOKE TO CHIDI ALLEN NURSE FROM [facility] ON THE PHONE. REPORT GIVEN. Addendum: 07/11/18 at 1521 by Stephania Palacios RN WRONG PT. CAROL OMIT ABOVE NOTE.
--- NOTE | 2018-07-11 15:19 | NUR ---
DIALYSIS NURSE ARRIVED TO INITIATE TX. Addendum: 07/11/18 at 1521 by Stephania Palacios RN WRONG PT. PLS OMIT ABOVE NOTE.
[2018-07-11 16:00] VITALS: BP 95/47
--- NOTE | 2018-07-11 16:45 | NUR ---
DR ROBLES IN UNIT TO SEE PT. NOTIFIED OF K LEVEL. PHYSICIAN TO REVIEW LABS.
[2018-07-11] MEDS: RIVAROXABAN 15 MG TAB PO SCH (17:12)
[2018-07-11 17:36] LABS: CHOL/HDL RATIO 2.4 (1-4.5)
[2018-07-11] MEDS ORDERED: POTASSIUM CHLORIDE 10 MEQ TABER PO SCH (18:30)
--- NOTE | 2018-07-11 19:25 | NUR ---
RECEIVED REPORT FROM MARIA DEL [employer]MEN [employer]S DAYSHIFT NURSE AT BEDSIDE, PT IN STABLE CONDITION.
--- NOTE | 2018-07-11 19:25 | NUR ---
REPORT GIVEN TO PM SHIFT NURSE TRISH.
[2018-07-11] MEDS ORDERED: VANCOMYCIN PER PHARMACY MC PRN (19:30)
--- NOTE | 2018-07-11 19:45 | NUR ---
DR. OBRIEN CONSULTING WITH PT AT BEDSIDE.
--- NOTE | 2018-07-11 19:50 | NUR ---
RESPIRATORY AT BEDSIDE GIVING PT RESPIRATORY TREATMENT. LAB CALLED [facility] REPORTED RESULTS OF BLOOD CULTURE , GRAM POSITIVE COCCI CLUSTERS. NEW ORDERS NOTED FROM DR. OBRIEN.. VANCOMYCIN PENDING. DR. ROBLES PAGED AND UPDATED.
[2018-07-11 20:00] VITALS: BP 102/46
[2018-07-11] MEDS: LEVOFLOXACIN 500 MG/D5W PREMIX 100 ML IV SCH (20:55)
[2018-07-11] MEDS: MIRTAZAPINE 15 MG TAB PO SCH (21:06)
[2018-07-11] MEDS ORDERED: VANCOMYCIN 1GM/DEXT 5% PREMIX 200 ML IV SCH (22:00)
--- NOTE | 2018-07-11 23:00 | NUR ---
VANCOMYCIN HUNG ORDERED, NO ADVERSE REACTION NOTED.
[2018-07-11] MEDS ORDERED: VANCOMYCIN 1,000 MG VIAL ONE (23:59)
[2018-07-12] VITALS: BP 113/58
--- NOTE | 2018-07-12 | NUR ---
PT IN BED NO S/S OF PAIN OR DISTRESS NOTED V/S FOLLOWS T 97.5 P 75 R 18 B/P 113/58 02 90 R 18.
[2018-07-12] MEDS: ALBUTEROL SULFATE/IPRATROPIU 3 ML SOL IH SCH ×6 (02:58→23:31)
[2018-07-12 04:00] VITALS: BP 129/69
--- NOTE | 2018-07-12 04:00 | NUR ---
PT DECLINES TO KEEP SUPPLEMENTAL 02 ON. PT V/S FOLLOWS T 97.1 P 78 R 18 B/P 129/69 02 95 WITH R/A.
[2018-07-12] MEDS: PIPER/TAZO 3.375GM/D5W PREMIX 50 ML IV SCH ×3 (05:47→20:43)
--- NOTE | 2018-07-12 06:02 | NUR ---
PATIENT HAS BEEN SCREENED AND CATEGORIZED LOW NUTRITION RISK. PATIENT WILL BE SEEN WITHIN 7 DAYS OF ADMISSION. 07/16/18 GISELA FENTON MS, RDN
[2018-07-12 06:10] LABS: FOLIC ACID 13.8 ng/mL (>3.0)
[2018-07-12 07:06] LABS: EOSINOPHILS # (AUTO) 0.1 K/uL (0-0.4); EOSINOPHILS % (AUTO) 0.4 % (0.0-4.0); HEMATOCRIT 33.9 % (36-48); LYMPHOCYTES # (AUTO) 1.4 K/uL (2.5-16.5); LYMPHOCYTES % (AUTO) 12.3 % (20.5-51.1); MEAN CORPUSCULAR HEMOGLOBIN 32 pg (27-31); MEAN CORPUSCULAR HGB CONC 32 g/dL (33-37); MEAN CORPUSCULAR VOLUME 97.8 fL (80-94); MONOCYTES # (AUTO) 0.9 K/uL (0.8-1.0); NEUTROPHILS # (AUTO) 9.1 K/uL (1.8-7.7); NEUTROPHILS % (AUTO) 79.3 % (42.2-75.2); PLATELET COUNT (AUTO) 257 K/uL (140-450); RED BLOOD CELL COUNT(AUTO) 3.47 MIL/uL (4.20-5.40); RED CELL DISTRIBUTION WIDTH 13.6 % (11.6-13.7); WHITE BLOOD COUNT (AUTO) 11.5 K/uL (4.8-10.8)
--- NOTE | 2018-07-12 07:30 | NUR ---
REPORT GIVEN TO BINH AT BEDSIDE FOR CONTINUTIY OF CARE, PT IN STABLE CONDITION.
--- NOTE | 2018-07-12 07:31 | NUR ---
RECEIVED REPORT FROM ELECTRIC METER SETTER NURSE. PATIENT LYING DOWN IN BED, AROUSABLE BY VOICE. NO DISTRESS NOTED. DENIES ANY PAIN. RESPIRATIONS EVEN, UNLABORED, ON ROOM AIR. SKIN INTACT. AAOX3. IV SITE CLEAN, DRY, INTACT, PATENT IVF INFUSING PER ORDERS. INTERMITTENT DRY COUGH NOTED. SCD'S IN PLACE. REVIEWED PLAN OF CARE WITH PATIENT. PATIENT VERBALIZED UNDERSTANDING. SAFETY MEASURES IN PLACE. CALL LIGHT WITHIN REACH. WILL CONTINUE TO MONITOR.
[2018-07-12 07:33] LABS: ALBUMIN 2.5 g/dL (3.4-5.0); ANION GAP 9.5 (8-16); ASPARTATE AMINOTRANSFERASE 10 U/L (15-37); CARBON DIOXIDE 31.2 mmol/L (21-32); CHLORIDE 107 mmol/L (98-107); CREATININE 0.9 mg/dL (0.6-1.3); GLUCOSE 107 mg/dL (74-106); POTASSIUM 3.7 mmol/L (3.5-5.1); SODIUM SERUM 144 mmol/L (136-145); TOTAL BILIRUBIN 0.3 mg/dL (0.0-1.0); UREA NITROGEN, BLOOD 17 mg/dL (7-18)
[2018-07-12 08:00] VITALS: BP 152/83
[2018-07-12] MEDS: THIAMINE 100 MG TAB PO SCH (09:26)
[2018-07-12] MEDS: predniSONE 20 MG TAB PO SCH (09:27)
[2018-07-12] MEDS: FOLIC ACID 1 MG TAB PO SCH (09:27)
[2018-07-12] MEDS: DIGOXIN 0.125 MG TAB PO SCH (09:28)
[2018-07-12] MEDS: DILTIAZEM 120 MG CAPER PO SCH (09:28)
[2018-07-12] MEDS: VANCOMYCIN 750 MG in DEXTROSE 5% 250 ML IV SCH ×2 (09:29→21:49)
[2018-07-12] MEDS: POTASSIUM CHL 20 MEQ/D5-1/2NS 1,000 ML IV SCH (09:30)
--- NOTE | 2018-07-12 09:30 | NUR ---
SON AT BEDSIDE TALKING WITH PATIENT. NO DISTRESS NOTED. SCHEDULED MEDS GIVEN. WILL CONTINUE TO MONITOR.
--- NOTE | 2018-07-12 10:30 | NUR ---
PATIENT AMBULATED TO BATHROOM AND BACK TO BED WITH STEADY GAIT. WILL CONTINUE TO MONITOR.
--- NOTE | 2018-07-12 13:15 | NUR ---
SCHEDULED MEDS GIVEN. NO DISTRESS NOTED. DENIES ANY PAIN. WILL CONTINUE TO MONITOR.
[2018-07-12 13:19] VITALS: BP 133/69
[2018-07-12 16:00] VITALS: BP 113/52
--- NOTE | 2018-07-12 16:00 | NUR ---
PATIENT LAYING DOWN, SLEEPING. AROUSABLE BY VOICE. CONDITION UNCHANGED. WILL CONTINUE TO MONITOR.
[2018-07-12] MEDS: RIVAROXABAN 15 MG TAB PO SCH (17:12)
--- NOTE | 2018-07-12 17:14 | NUR ---
SCHEDULED MEDS GIVEN. NO DISTRESS NOTED. WILL CONTINUE TO MONITOR.
--- NOTE | 2018-07-12 18:00 | NUR ---
PATIENT SITTING IN BED WITH DINNER TRAY IN FRONT. CONDITION UNCHANGED. WILL CONTINUE TO MONITOR.
--- NOTE | 2018-07-12 19:10 | NUR ---
ENDORSED PATIENT TO CDA TEACHER NURSE. PATIENT IN STABLE CONDITION.
--- NOTE | 2018-07-12 19:15 | NUR ---
RECEIVED BEDSIDE REPORT FROM DAY SHIFT RN. PT IS A&O X3. PT RESTING COMFORTABLY BUT EASILY AROUSABLE TO VOICE. RESPIRATIONS ARE EQUAL AND UNLABORED. DENIES ANY SOB. PT IV ON R FA 20G IVF PER ORDERS. SKIN INTACT. PT ON TELE MONITOR WITH CONTROLLED A -FIB. LEFT HAD RESTRICTION BAND ON SIGN POSTED IN ROOM. SAFETY MEASURES IN PLACE. CALL LIGHT WITHIN REACH.
[2018-07-12 20:00] VITALS: BP 125/71
[2018-07-12] MEDS: LEVOFLOXACIN 500 MG/D5W PREMIX 100 ML IV SCH (20:06)
[2018-07-12] MEDS: MIRTAZAPINE 15 MG TAB PO SCH (20:42)
--- NOTE | 2018-07-12 20:43 | NUR ---
DUE MEDICATIONS GIVEN PT TOLERATED WELL. VITAL SIGNS WITHIN NORMAL LIMITS. PT DENIES PAIN. CALL LIGHT WITHIN REACH.
[2018-07-13] VITALS: BP 129/72
--- NOTE | 2018-07-13 | NUR ---
VITAL SIGNS WITHIN NORMAL LIMITS. SAFETY MEASURES IN PLACE. CALL LIGHT WITHIN REACH.
--- NOTE | 2018-07-13 01:28 | NUR ---
PT SLEEPING NO DISTRESS NOTED. CALL LIGHT WITHIN REACH.
[2018-07-13] MEDS: ALBUTEROL SULFATE/IPRATROPIU 3 ML SOL IH SCH ×6 (03:00→23:48)
--- NOTE | 2018-07-13 03:20 | NUR ---
PT REFUSED NEB TX. SAT 99 HR 70 RR 14 ON RA. WILL CONT TO MONITOR PT.
[2018-07-13] MEDS: POTASSIUM CHL 20 MEQ/D5-1/2NS 1,000 ML IV SCH ×3 (03:57→21:17)
[2018-07-13] MEDS: PIPER/TAZO 3.375GM/D5W PREMIX 50 ML IV SCH ×3 (03:59→21:18)
[2018-07-13 04:00] VITALS: BP 139/91
--- NOTE | 2018-07-13 04:00 | NUR ---
ZOSYN NOW INFUSING PER ORDERS. VITAL SIGNS WITHIN NORMAL LIMITS. NO DISTRESS NOTED. CALL LIGHT WITHIN REACH.
--- NOTE | 2018-07-13 07:15 | NUR ---
ENDORSED PT TO DAY SHIFT RN. PT IN STABLE CONDITION.
--- NOTE | 2018-07-13 07:16 | NUR ---
RECEIVED REPORT FROM PROFESSIONAL VOLLEYBALL PLAYER NURSE. PATIENT LYING DOWN IN BED SLEEPING, AROUSABLE BY VOICE. NO DISTRESS NOTED. DENIES ANY PAIN. RESPIRATIONS EVEN, UNLABORED, ON ROOM AIR. AAOX3, CALM, COOPERATIVE, SKIN COLOR APPROPRIATE TO ETHNICITY, WARM TO TOUCH. SKIN IS INTACT. LUNGS CTA ON ALL LOBES. IV SITE INTACT, PATENT, AND INFUSING IVF PER MD ORDERS. REVIEWED PLAN OF CARE WITH PATIENT. PATIENT VERBALIZED UNDERSTANDING. SAFETY MEASURES IN PLACE, CALL LIGHT WITHIN REACH. WILL CONTINUE TO MONITOR.
[2018-07-13 08:00] VITALS: BP 149/82
[2018-07-13 08:48] LABS: ANION GAP 10.8 (8-16); CHLORIDE 105 mmol/L (98-107); CREATININE 0.9 mg/dL (0.6-1.3); GLUCOSE 111 mg/dL (74-106); POTASSIUM 3.8 mmol/L (3.5-5.1); SODIUM SERUM 141 mmol/L (136-145)
[2018-07-13 09:15] LABS: UREA NITROGEN, BLOOD 13 mg/dL (7-18)
[2018-07-13] MEDS: predniSONE 20 MG TAB PO SCH (09:31)
[2018-07-13] MEDS: DILTIAZEM 120 MG CAPER PO SCH (09:31)
[2018-07-13] MEDS: THIAMINE 100 MG TAB PO SCH (09:31)
[2018-07-13] MEDS: FOLIC ACID 1 MG TAB PO SCH (09:31)
[2018-07-13] MEDS: DIGOXIN 0.125 MG TAB PO SCH (09:31)
--- NOTE | 2018-07-13 09:33 | NUR ---
PATIENT LYING DOWN IN BED SLEEPING, AROUSABLE BY VOICE. NO DISTRESS NOTED. DENIES ANY PAIN. SCHEDULED MEDICATIONS DUE GIVEN. SAFETY MEASURES IN PLACE, CALL LIGHT WITHIN REACH. WILL CONTINUE TO MONITOR.
--- NOTE | 2018-07-13 10:30 | NUR ---
PATIENT LYING DOWN IN BED SLEEPING, AROUSABLE BY VOICE. NO DISTRESS NOTED. DENIES ANY PAIN. WILL CONTINUE TO MONITOR.
--- NOTE | 2018-07-13 13:05 | NUR ---
PATIENT AMBULATED TO BATHROOM AND BACK TO BED WITH STEADY GAIT. ACCIDENTLY PULLED OUT IV LINE. IV LINE LUMEN COMPLETELY INTACT. NEW IV LINE STARTED ON RIGHT FOREARM #22 GAUGE ON FIRST ATTEMPT. PATIENT TOLERATED PROCEDURE WELL. SCHEDULED MEDICATIONS DUE GIVEN. SAFETY MEASURES IN PLACE, CALL LIGHT WITHIN REACH. WILL CONTINUE TO MONITOR.
--- NOTE | 2018-07-13 13:30 | NUR ---
DR. ROBLES AT BEDSIDE REVIEWING PLAN OF CARE WITH PATIENT. WILL CONTINUE TO MONITOR.
--- NOTE | 2018-07-13 15:30 | NUR ---
PATIENT LYING DOWN IN BED SLEEPING, AROUSABLE BY VOICE. CONDITION UNCHANGED. WILL CONTINUE TO MONITOR.
[2018-07-13 16:00] VITALS: BP 109/50
[2018-07-13] MEDS: RIVAROXABAN 15 MG TAB PO SCH (16:25)
--- NOTE | 2018-07-13 18:00 | NUR ---
PATIENT SITTING IN BED WITH DINNER TRAY IN FRONT. NO DISTRESS NOTED. CONDITION UNCHANGED. WILL CONTINUE TO MONITOR.
--- NOTE | 2018-07-13 19:29 | NUR ---
GAVE REPORT TO DEPARTMENT HEAD NURSE FOR CONTINUITY OF CARE. PATIENT IN STABLE CONDITION.
--- NOTE | 2018-07-13 19:30 | NUR ---
RECEIVED BEDSIDE REPORT FROM DAY SHIFT RN. PT IS A&OX4. RT AT BEDSIDE PT CURRENTLY RECEIVING BREATHING TREATMENT. RESPIRATIONS ARE EQUAL AND UNLABORED. DENIES ANY SOB. IV TO R FA. IVF INFUSING PER ORDERS. PT NO B/P ON LEFT ARM SIGNS ON WALL AND ARM BAND ON. SHE IS AMBULATORY WITH ASSIST. BED ON LOWEST POSITION AND BED ALARM ON. PLAN OF CARE DISCUSSED WITH PT. CALL LIGHT WITHIN REACH.
--- NOTE | 2018-07-13 20:00 | NUR ---
LEVAQUIN HANG AND INFUSING PER ORDERS. PT IN NO DISTRESS.
[2018-07-13] MEDS: LEVOFLOXACIN 500 MG/D5W PREMIX 100 ML IV SCH (20:09)
[2018-07-13] MEDS: MIRTAZAPINE 15 MG TAB PO SCH (21:16)
--- NOTE | 2018-07-13 21:17 | NUR ---
DUE MEDICATIONS GIVEN. PT TOLERATED WELL. NO DISTRESS NOTED. ALL NEEDS MET AT THIS TIME. CALL LIGHT WITHIN REACH.
[2018-07-13 23:11] VITALS: BP 133/74
--- NOTE | 2018-07-14 | NUR ---
PT SLEEPING COMFORTABLY. NO DISTRESS NOTED. SAFETY MEASURES IN PLACE. CALL LIGHT WITHIN REACH.
--- NOTE | 2018-07-14 03:14 | NUR ---
PT SLEEPING COMFORTABLY. NO DISTRESS NOTED. RESPIRATIONS ARE EQUAL AND UNLABORED. SAFETY MEASURES IN PLACE. CALL LIGHT WITHIN REACH.
[2018-07-14] MEDS: ALBUTEROL SULFATE/IPRATROPIU 3 ML SOL IH SCH ×4 (03:55→14:54)
[2018-07-14] MEDS: PIPER/TAZO 3.375GM/D5W PREMIX 50 ML IV SCH ×2 (04:13→12:41)
--- NOTE | 2018-07-14 04:15 | NUR ---
HANG ZOSYN PER ORDERS. PT TOLERATED WELL. SAFETY MEASURES IN PLACE. CALL LIGHT WITHIN REACH.
--- NOTE | 2018-07-14 06:20 | NUR ---
PT SLEEPING NO DISTRESS NOTED. RESPIRATIONS ARE EQUAL AND UNLABORED. CALL LIGHT WITHIN REACH.
[2018-07-14 07:20] LABS: BASOPHILS # (AUTO) 0.1 K/uL (0.00-0.22); BASOPHILS % (AUTO) 0.9 % (0.0-2.0); EOSINOPHILS # (AUTO) 0.1 K/uL (0-0.4); EOSINOPHILS % (AUTO) 0.9 % (0.0-4.0); HEMATOCRIT 34.8 % (36-48); HEMOGLOBIN 11.6 g/dL (12.0-16.0); LYMPHOCYTES # (AUTO) 1.5 K/uL (2.5-16.5); LYMPHOCYTES % (AUTO) 14.5 % (20.5-51.1); MEAN CORPUSCULAR HEMOGLOBIN 33 pg (27-31); MEAN CORPUSCULAR HGB CONC 33 g/dL (33-37); MEAN CORPUSCULAR VOLUME 97.4 fL (80-94); MONOCYTES # (AUTO) 0.8 K/uL (0.8-1.0); MONOCYTES % (AUTO) 8.1 % (1.7-9.3); NEUTROPHILS # (AUTO) 7.8 K/uL (1.8-7.7); NEUTROPHILS % (AUTO) 75.6 % (42.2-75.2); PLATELET COUNT (AUTO) 290 K/uL (140-450); RED BLOOD CELL COUNT(AUTO) 3.57 MIL/uL (4.20-5.40); RED CELL DISTRIBUTION WIDTH 13.6 % (11.6-13.7); WHITE BLOOD COUNT (AUTO) 10.3 K/uL (4.8-10.8)
--- NOTE | 2018-07-14 07:20 | NUR ---
ENDORSED PT TO DAY SHIFT RN. PT IN STABLE CONDITION. SAFETY MEASURES IN PLACE.
--- NOTE | 2018-07-14 07:21 | NUR ---
RECEIVED REPORT FROM PM NURSE AT BEDSIDE. PT LYING ON HER BED. HAS LF FA 22 G, KCL 20 MEQ INFUSING IN D5, 0.5 NS IVF. TOLERATING WELL. INTRODUCED SELF AND UPDATED BOARD. SKIN IS INTACT. PT IS ON FALL RISK PRECAUTION. PT AOX4, CAN AMBULATE TO RESTROOM WITH ASSIST. PLACED CALL LIGHT WITHIN PT REACH. INFORMED HER TO USE CALL LIGHT FOR ANY HELP. NO SIGN OF DISTRESS NOTED. WILL CONTINUE TO MONITOR PT.
[2018-07-14 08:00] VITALS: BP 159/86
[2018-07-14] MEDS: FOLIC ACID 1 MG TAB PO SCH (09:04)
[2018-07-14] MEDS: predniSONE 20 MG TAB PO SCH (09:04)
[2018-07-14] MEDS: DIGOXIN 0.125 MG TAB PO SCH (09:04)
[2018-07-14] MEDS: THIAMINE 100 MG TAB PO SCH (09:05)
[2018-07-14] MEDS: DILTIAZEM 120 MG CAPER PO SCH (09:05)
[2018-07-14 09:22] LABS: ANION GAP 13.4 (8-16); CARBON DIOXIDE 27.6 mmol/L (21-32); CHLORIDE 107 mmol/L (98-107); GLUCOSE 106 mg/dL (74-106); SODIUM SERUM 144 mmol/L (136-145); UREA NITROGEN, BLOOD 16 mg/dL (7-18)
--- NOTE | 2018-07-14 09:30 | NUR ---
ADMINISTERED MEDS TO PT ORDERED. TOLERATED WELL. ALL SAFETY MEASURE IN PLACE. ASSISTED PT TO RESTROOM. PT ASKING FOR COFFEE,VEHICLE WASHER PROVIDED COFFEE. PLACED TABLE NEAR BEDSIDE. PT SON ASKED TO CALL IF DR ROBLES SEES PT TODAY. WILL CONTINUE TO MONITOR PT.
--- NOTE | 2018-07-14 12:30 | NUR ---
CHECKED ON PT. PT HAVING LUNCH. NO DISTRESS NOTED. RECEIVED CALL FROM DR ROBLES , STATES WILL DC PT TODAY . UPDATED HER ON PT LAB REPORT, NO CRITICAL VALUE OBSERVED. ASKING TO COLLECT MEDS FROM PHARMACY TO DO MED REC. INFORMED WILL GATHER MEDS ONCE SHE REACHES HOSPITAL. WILL CONTINUE TO MONITOR PT.
[2018-07-14] MEDS ORDERED: ALBUTEROL HFA MDI 90 MCG/ACTUATION 8 GM INH PRN (14:10)
--- NOTE | 2018-07-14 14:30 | NUR ---
PT SEEN BY DR ROBLES. HAS DISCHARGED ORDER FOR PT. TALKED WITH SON, AGGRESS WITH PLAN. INFORMED SON THAT WILL WORK ON HER DC PAPER . SON TO COME BACK TO ORDER PROCESSING SPECIALIST PT FROM HOSPITAL. NO SIGN OF DISTRESS NOTED .WILL CONTINUE TO MONITOR PT.
--- NOTE | 2018-07-14 16:00 | NUR ---
PT WENT HOME WITH ALL MEDS KEPT IN PHARMACY. PTS SON GIVEN PRESCRIPTION BY DR ROBLES. PT IS STABLE AND FULL CODE. GAVE ALL DISCHARGE INSTRUCTION, DC PACKET PROVIDED . PT TOOK ALL HER BELONGINGS WITH HER. WHEELED OUT PT TO FRONT LOBBY.
[2018-07-14] MEDS ORDERED: CLINDAMYCIN 150 MG CAP PO SCH (17:00)
[2018-07-15] MEDS ORDERED: RIVAROXABAN 15 MG TAB PO SCH (09:00)
[2018-07-15] MEDS ORDERED: LEVOFLOXACIN 250 MG TAB PO SCH (09:00)
[2018-07-15] MEDS ORDERED: DILTIAZEM HCL 240 MG PO SCH (09:00)
[2018-07-15] MEDS ORDERED: NON-FORMULARY ITEM (Tiotropium Bromide* (Spiriva Mdi*) 1 CAP) INH SCH (09:00)
== END 2018-07-14 16:00 | disposition home or self-care (01) | DRG 190 ==
LOC: MED 15:56 → MTU 18:07
PROVIDERS: ADMIT Internal Medicine Geriatric Medicine; ATTEND Internal Medicine Geriatric Medicine
DX: J44.0 Chronic obstructive pulmonary disease with (acute) lower respiratory infection (principal); J18.1 Lobar pneumonia, unspecified organism; E87.1 Hypo-osmolality and hyponatremia; E46 Unspecified protein-calorie malnutrition; I48.91 Unspecified atrial fibrillation; K70.9 Alcoholic liver disease, unspecified; F41.9 Anxiety disorder, unspecified; F32.9 Major depressive disorder, single episode, unspecified; F17.200 Nicotine dependence, unspecified, uncomplicated; E78.5 Hyperlipidemia, unspecified; E87.6 Hypokalemia; I11.9 Hypertensive heart disease without heart failure; K74.60 Unspecified cirrhosis of liver; Z82.5 Family history of asthma and other chronic lower respiratory diseases; Z85.3 Personal history of malignant neoplasm of breast; Z90.12 Acquired absence of left breast and nipple; Z91.041 Radiographic dye allergy status; Z79.899 Other long term (current) drug therapy
CPT/HCPCS: 36415; 70450; 71045; 71046; 80048; 80053; 80162; 81001; 82306; 82607; 82746; 83605; 83735; 83880; 84134; 84484; 85025; 87040; 87081; 87086; 94640; 96361; 96365; 96375; 99291; J1956; J2405; J2543; J3370; J7030; J7060; J7512; J7620; Q0092

== ENCOUNTER 2018-09-07 22:09 | Emergency (ER) | payer OTHER ==
[~2018-09-07] VITALS: Ht 175.3 cm; Wt 55.8 kg
[2018-09-07 22:13] VITALS: BP 183/118
--- NOTE | 2018-09-07 22:16 | NUR ---
EKG PERFORMED AT BEDSIDE. PT COVERED IN GOWN AND BLANKET DURING PROCEDURE
--- NOTE | 2018-09-07 22:17 | NUR ---
PT PRESENTS TO ED BIBA WITH C/O HIGH BP AND DIZZINESS. PER PT "I TOOK MY BP AT HOME AND IT WAS HIGH AND MY SON CALLED THE PARAMEDICS." GCS IS 15. PT DENIES CP/SOB AT THIS TIME. PT PLACED INTO BED, PENDING MD DAIGLE. PMH--AFIB, HTN, COPD. RX--XARELTO
[2018-09-07] MEDS ORDERED: DILTIAZEM 30 MG TAB PO ONE (22:45)
[2018-09-07] MEDS ORDERED: MECLIZINE 25 MG TAB PO ONE (22:45)
[2018-09-08 00:24] VITALS: BP 154/96
== END 2018-09-08 00:25 | disposition home or self-care (01) ==
LOC: MED 22:09
DX: H81.10 Benign paroxysmal vertigo, unspecified ear (principal); J45.909 Unspecified asthma, uncomplicated; J44.9 Chronic obstructive pulmonary disease, unspecified; Z85.3 Personal history of malignant neoplasm of breast; Z79.899 Other long term (current) drug therapy
CPT/HCPCS: 70450; 93005; 99284; J8597

== ENCOUNTER 2019-01-30 16:55 | Emergency (ER) | payer OTHER ==
[~2019-01-30] VITALS: Ht 172.7 cm; Wt 65.3 kg
--- NOTE | 2019-01-30 17:01 | NUR ---
CALLED ONCE FOR TRIAGE, NO RESPONSE.
[2019-01-30 17:12] VITALS: BP 142/76
--- NOTE | 2019-01-30 17:14 | NUR ---
Patient transferred to bed 4 via wheelchair by tech, accompanied by family. RN evaluating patient at bedside.
--- NOTE | 2019-01-30 17:32 | NUR ---
73 Y FEMALE BIB SON WITH SOB AND DRY COUGH X 2 DAYS. STATES SHE USED AT HOME ALBUTEROL X 30 MINS, 6 TIMES TOTAL TODAY. VSS AT THIS TIME. RR EVEN AND UNLABORED. LUNGS CLEAR BILATERALLY. PATIENT ON RA AT 95%. PT AA0X4. BED IS DOWN, LOCKED, BED RAIL X 1, ERMD TO SEE PT. PMH- COPD, ASTHMA, HTN, RECENTLY RE-DIAGNOSED WITH BREAST CANCER SEE MED REC
[2019-01-30] MEDS ORDERED: MAG SULF 2000 MG/WATER PREMIX 50 ML IV ONE (18:20)
[2019-01-30] MEDS ORDERED: FAMOTIDINE 20 MG/2 ML VIAL IVP ONE (18:20)
[2019-01-30] MEDS ORDERED: methylPREDNISolone SS 125 MG/2 ML VIAL IVP ONE (18:20)
[2019-01-30] MEDS ORDERED: ALBUTEROL SULFATE/IPRATROPIU 3 ML SOL IH ONE (18:20)
--- NOTE | 2019-01-30 18:33 | NUR ---
audiometric technician at bedside.
[2019-01-30 18:50] LABS: BASOPHILS % (AUTO) 0.2 % (0.0-2.0); EOSINOPHILS # (AUTO) 0.1 K/uL (0-0.4); EOSINOPHILS % (AUTO) 0.8 % (0.0-4.0); HEMATOCRIT 35.6 % (36-48); HEMOGLOBIN 11.8 g/dL (12.0-16.0); LYMPHOCYTES # (AUTO) 1.7 K/uL (2.5-16.5); LYMPHOCYTES % (AUTO) 12.2 % (20.5-51.1); MEAN CORPUSCULAR HEMOGLOBIN 30 pg (27-31); MEAN CORPUSCULAR HGB CONC 33 g/dL (33-37); MONOCYTES # (AUTO) 1.2 K/uL (0.8-1.0); MONOCYTES % (AUTO) 8.5 % (1.7-9.3); NEUTROPHILS # (AUTO) 10.9 K/uL (1.8-7.7); NEUTROPHILS % (AUTO) 78.3 % (42.2-75.2); PLATELET COUNT (AUTO) 310 K/uL (140-450); RED BLOOD CELL COUNT(AUTO) 3.87 MIL/uL (4.20-5.40); RED CELL DISTRIBUTION WIDTH 14.2 % (11.6-13.7); WHITE BLOOD COUNT (AUTO) 13.9 K/uL (4.8-10.8)
--- NOTE | 2019-01-30 19:06 | NUR ---
EKG READS AFIB, PT STATES SHE HAS A HISTORY OF IT
[2019-01-30 19:18] LABS: ANION GAP 14.1 (8-16); CARBON DIOXIDE 24.6 mmol/L (21-32); CHLORIDE 102 mmol/L (98-107); CREATININE 0.9 mg/dL (0.6-1.3); GLUCOSE 95 mg/dL (74-106); POTASSIUM 3.7 mmol/L (3.5-5.1); PROTHROMBIN TIME 12.5 secs (10.8-13.4); SODIUM SERUM 137 mmol/L (136-145); UREA NITROGEN, BLOOD 8 mg/dL (7-18)
--- NOTE | 2019-01-30 19:22 | NUR ---
REPORT RECEIVED FROM PEGGY YAN. TRANSITION OF CARE AT THIS TIME.
[2019-01-30 19:24] LABS: D-DIMER < 100 ng/ml (0-400)
[2019-01-30 19:25] LABS: ALBUMIN 3.7 g/dL (3.4-5.0); ASPARTATE AMINOTRANSFERASE 13 U/L (15-37); TOTAL BILIRUBIN 0.3 mg/dL (0.0-1.0)
--- NOTE | 2019-01-30 19:42 | NUR ---
PT IS AWAKE, SITTING UP COMFORTABLY IN BED. HOB IN HIGH CORADO'S. RESPIRATIONS EVEN, UNLABORED. SKIN PINK, WARM, DRY. NO S/SX RESPIRATORY DISTRESS AT THIS TIME. SP02:95%. RR: 20. PT STATES SHE IS FEELING BETTER.
--- NOTE | 2019-01-30 20:30 | NUR ---
PT SLEEPING COMFORTABLY IN BED. VSS. SKIN PINK, WARM, DRY. BREATHING EVEN, UNLABORED. NO S/SX RESPIRATORY DISTRESS AT THIS TIME.
[2019-01-30 21:45] VITALS: BP 156/94
--- NOTE | 2019-01-30 21:45 | NUR ---
Patient discharged with v/s stable. Written and verbal after care instructions given and explained. Patient alert, oriented and verbalized understanding of instructions. Ambulatory with steady gait. All questions addressed prior to discharge. ID band removed. Patient advised to follow up with PMD. Rx of Prednisone and Albuterol given. Patient educated on indication of medication including possible reaction and side effects. Opportunity to ask questions provided and answered.
--- NOTE | 2019-02-03 12:56 | NUR ---
Late entry. Confirmed with RN 2GMS magnesium IVPB completed at 2100
== END 2019-01-30 21:45 | disposition home or self-care (01) ==
LOC: MED 16:55
DX: I50.9 Heart failure, unspecified (principal); J44.1 Chronic obstructive pulmonary disease with (acute) exacerbation; I49.9 Cardiac arrhythmia, unspecified; Z85.3 Personal history of malignant neoplasm of breast; Z79.899 Other long term (current) drug therapy
CPT/HCPCS: 36415; 71045; 80053; 80162; 83735; 83880; 84484; 85025; 85379; 85610; 93005; 94640; 96365; 96366; 96375; 99284; J2930; J3475; J3490; J7620; Q0092

== ENCOUNTER 2019-08-05 21:16 | Emergency (ER) | payer OTHER ==
[~2019-08-05] VITALS: Ht 175.3 cm; Wt 81.6 kg
--- NOTE | 2019-08-05 21:16 | NUR ---
PT INTUBATED BY PARAMEDICS ENROUTE TO ED
--- NOTE | 2019-08-05 21:16 | NUR ---
74 Y/O FEMALE BIBA. EMS DISPATCHED TO A PT AT FULL ARREST. PER EMS, PT WAS LAST KNOWN WELL 15 MINUTES PRIOR TO EMS ARRIVAL. PT WAS FOUND BY FAMILY UNCONSCIOUS, UKNOWN LENGTH OF TIME. FAMILY INITIATED CPR PRIOR TO EMS ARRIVAL. EMS TOOK OVER CPR FOR 40 MINS. V-FIB X2; SHOCKED AT 250 AND 300 WITH NO CONVERSION. RECEIVED 6 ROUNDS OF EPI, 2MG NARCAN, 150MG LIDOCAINE. ASYSTOLE ENROUTE TO ED. LUNG SOUNDS WERE CLEAR. PUPILS FIXED/DILATED. HX: LUNG CA AND UNDER REMISSION HAD CHEMO TX YESTERDAY, HTN, DM
--- NOTE | 2019-08-05 21:16 | NUR ---
CARDIAC RYTHM - ASYSTOLE. 1 ROUND OF EPI PUSHED
--- NOTE | 2019-08-05 21:16 | NUR ---
2112 - CARDIAC RYTHM ASYTOLE
--- NOTE | 2019-08-05 21:16 | NUR ---
2112- PATIENT BIBA FULL ARREST. PT TAKEN TO BED 10. DR. MANDUJANO AND RT AT BEDSIDE
--- NOTE | 2019-08-05 21:18 | NUR ---
CARDIAC RYTHM - ASYSTOLE. 1 ROUND OF EPI 1MG PUSHED. BS: 93
--- NOTE | 2019-08-05 21:20 | NUR ---
CARDIAC RYTHM - PEA
--- NOTE | 2019-08-05 21:21 | NUR ---
1 ROUND OF EPI 1MG PUSHED
--- NOTE | 2019-08-05 21:22 | NUR ---
CARDIAC RYTHM - PEA
[2019-08-05] MEDS ORDERED: PRIMARY CRASH CART TRAY MC ONE (21:23)
--- NOTE | 2019-08-05 21:24 | NUR ---
1 ROUND OF EPI 1MG PUSHED
--- NOTE | 2019-08-05 21:26 | NUR ---
CARDIAC RYTHM - PEA
--- NOTE | 2019-08-05 21:28 | NUR ---
PATIENT PRONOUNCED BY DR. Nela MANDUJANO AT THIS TIME
--- NOTE | 2019-08-05 21:32 | NUR ---
Family brought into triage room with Dr Santana. Dr Santana disclosed time of and interventions. Collected phone numbers from son Den Bradley and his Kiana. and respectively. Family aware we are awaiting [employer] to clear body before viewing.
--- NOTE | 2019-08-05 21:41 | NUR ---
[facility] called. Spoke to Deborah dispatch. [place] city councilman call back.
--- NOTE | 2019-08-05 21:50 | NUR ---
Spoke to [employer]. Provided patient information. [employer] states patient is elligable for donation but we are not to disclose this to family as [employer] will contact them and do so. Referral Number: [id number]
--- NOTE | 2019-08-05 22:57 | NUR ---
Spoke to Konrad Andrews Patient is NOT a [facility] case and body to be released. Report Number: [id number]
--- NOTE | 2019-08-05 23:00 | NUR ---
Spoke to [facility] [employer]. They are not persuing donation at this time.
--- NOTE | 2019-08-05 23:02 | NUR ---
SPOKE WITH PT'S SON. LEFT MESSAGE REGARDING RELEASE OF PT'S BODY.
--- NOTE | 2019-08-05 23:58 | NUR ---
Son, Den Bradley and Daughter Inlaw at bedside with patients body.
--- NOTE | 2019-08-06 00:38 | NUR ---
Den Callaway chose [facility].
--- NOTE | 2019-08-06 00:45 | NUR ---
[facility] Awaiting [facility]. Approximate ETA 1.5-2 hours.
--- NOTE | 2019-08-06 01:00 | NUR ---
PT BODY MOVED TO ROOM 118
--- NOTE | 2019-08-06 01:00 | NUR ---
Juan blue in [facility] - 08/06/19 at 0100 by KENDRA PT BODY MOCED TO ROOM 118
== END 2019-08-05 21:28 | disposition expired ==
LOC: MED 21:16
DX: I46.9 Cardiac arrest, cause unspecified (principal); I10 Essential (primary) hypertension; I48.91 Unspecified atrial fibrillation; F17.210 Nicotine dependence, cigarettes, uncomplicated; J44.9 Chronic obstructive pulmonary disease, unspecified; Z86.73 Personal history of transient ischemic attack (TIA), and cerebral infarction without residual deficits; Z85.3 Personal history of malignant neoplasm of breast; Z79.899 Other long term (current) drug therapy; Z98.890 Other specified postprocedural states; Z92.21 Personal history of antineoplastic chemotherapy
CPT/HCPCS: 99285